=== PATIENT | female | born 1965 | race Caucasian/White ===

== ENCOUNTER 2017-09-24 12:24 | Emergency (ER) | payer OTHER ==
[~2017-09-24] VITALS: Ht 154.9 cm; Wt 136.1 kg
[2017-09-24 12:29] VITALS: Ht 154.9 cm; Wt 136.1 kg
[2017-09-24 16:01] VITALS: BP 180/112
== END 2017-09-24 16:01 | disposition home or self-care (01) ==
LOC: ED 12:24
DX: R51 Headache (principal); I10 Essential (primary) hypertension; E11.9 Type 2 diabetes mellitus without complications
CPT/HCPCS: 82962; J1200; J2765

== ENCOUNTER 2018-02-24 19:19 | Inpatient (IN) | payer OTHER ==
[~2018-02-24] VITALS: Ht 154.9 cm; Wt 146.5 kg
[2018-02-24] MEDS ORDERED: METFORMIN HYDR500 M1 PO (20:35)
[2018-02-24] MEDS ORDERED: ALBUTEROL1.25 MG/3 (20:36)
[2018-02-24] MEDS ORDERED: MOT400 GT (20:36)
[2018-02-24] MEDS ORDERED: AMLODIPINE BES2.5 M1 (20:37)
[2018-02-24 21:22] LABS: PLATELET COUNT 266 x10^3mcL (130-400)
[2018-02-24 21:38] LABS: RED CELL DISTRIBUTION WIDTH 20.5 % (11.5-14.5)
[2018-02-24 21:41] LABS: CALCIUM 8.1 mg/dL (8.5-10.1); CARBON DIOXIDE 31.8 mmol/L (21-32); CHLORIDE SERUM 105 mmol/L (98-107); GFR1 > 60 mL/min; GLUCOSE SERUM 153 mg/dL (74-106); POTASSIUM SERUM 3.8 mmol/L (3.5-5.1); SODIUM SERUM 143 mmol/L (136-145)
[2018-02-24 21:46] LABS: ALKALINE PHOSPHATASE 107 U/L (46-116); ALT/SGPT 15 U/L (14-59); AST/SGOT 22 U/L (15-37); BILIRUBIN TOTAL 0.8 mg/dL (0.20-1.00); LIPASE 93 IU/L (73-393); MAGNESIUM 1.8 mg/dL (1.8-2.4)
[2018-02-24 21:48] LABS: BAND NEUTROPHIL 0 % (0-10); BASOPHIL 0 % (0-2); MONOCYTE 12 % (0-7); SEGMENTED NEUTROPHILS 59 % (37-75)
[2018-02-24 21:49] LABS: ALBUMIN 2.6 g/dL (3.4-5.0); rbc morphology (normal/abnorm) ABNORMAL (NORMAL)
[2018-02-24 23:10] LABS: microscopic required? NO
[2018-02-24 23:27] LABS: UA SPECIFIC GRAVITY 1.015 (1.005-1.035); urine erythrocyte NEGATIVE (NEGATIVE)
[2018-02-24 23:39] VITALS: BP 163/97
[2018-02-24 23:56] LABS: AMPHETAMINE QUAL UR NONE DETECTED (See below)
[2018-02-25 00:35] LABS: T3 TOTAL 0.95 ng/mL
[2018-02-25 00:39] LABS: PHOSPHOROUS 3.8 mg/dL (2.5-4.9)
[2018-02-25 00:40] LABS: CHOLESTEROL/HDL RATIO 4.1
[2018-02-25 00:44] LABS: FREE T4 1.13 ng/dL (0.76-1.46); FREE THYROXINE INDEX 2.5 ug/dL (1.4-4.5); T4(THYROXINE) 7.2 ug/dL (4.7-13.3)
[2018-02-25 05:53] VITALS: BP 128/69
[2018-02-25 07:04] LABS: CARBON DIOXIDE 32.9 mmol/L (21-32); CHLORIDE SERUM 104 mmol/L (98-107); CREATININE SERUM 0.9 mg/dL (0.6-1.0); GFR1 > 60 mL/min; GLUCOSE SERUM 111 mg/dL (74-106); MAGNESIUM 1.7 mg/dL (1.8-2.4); PHOSPHOROUS 4.1 mg/dL (2.5-4.9); POTASSIUM SERUM 4.1 mmol/L (3.5-5.1); SODIUM SERUM 143 mmol/L (136-145)
[2018-02-25 08:28] LABS: BASOPHIL % 0.9 % (0-2); PLATELET COUNT 279 x10^3mcL (130-400)
[2018-02-25 08:29] VITALS: BP 138/92
[2018-02-25 08:29] LABS: RED CELL DISTRIBUTION WIDTH 20.3 % (11.5-14.5)
[2018-02-25 08:30] LABS: rbc morphology (normal/abnorm) ABNORMAL (NORMAL)
[2018-02-25 12:55] VITALS: BP 127/93
[2018-02-25 16:40] VITALS: BP 105/61
[2018-02-25 21:43] VITALS: BP 151/80
[2018-02-26 05:42] VITALS: BP 159/55
[2018-02-26 06:39] LABS: CALCIUM 8.4 mg/dL (8.5-10.1); CARBON DIOXIDE 37.7 mmol/L (21-32); CHLORIDE SERUM 103 mmol/L (98-107); CREATININE SERUM 0.9 mg/dL (0.6-1.0); GFR1 > 60 mL/min; GLUCOSE SERUM 118 mg/dL (74-106); SODIUM SERUM 143 mmol/L (136-145)
[2018-02-26 08:04] LABS: BASOPHIL % 0.6 % (0-2); PLATELET COUNT 261 x10^3mcL (130-400)
[2018-02-26 08:12] LABS: RED CELL DISTRIBUTION WIDTH 20.9 % (11.5-14.5)
[2018-02-26 09:16] VITALS: BP 134/78
[2018-02-26 12:09] VITALS: BP 109/63
[2018-02-26 17:32] VITALS: BP 123/69
[2018-02-26 20:30] VITALS: BP 152/86
[2018-02-27 05:51] VITALS: BP 124/82
[2018-02-27 06:50] LABS: BASOPHIL % 0.7 % (0-2); PLATELET COUNT 280 x10^3mcL (130-400)
[2018-02-27 07:10] LABS: CALCIUM 8.4 mg/dL (8.5-10.1); CHLORIDE SERUM 100 mmol/L (98-107); CREATININE SERUM 0.9 mg/dL (0.6-1.0); GFR1 > 60 mL/min; GLUCOSE SERUM 131 mg/dL (74-106); MAGNESIUM 1.6 mg/dL (1.8-2.4); PHOSPHOROUS 4.4 mg/dL (2.5-4.9); POTASSIUM SERUM 3.9 mmol/L (3.5-5.1); SODIUM SERUM 138 mmol/L (136-145)
[2018-02-27 07:13] LABS: RED CELL DISTRIBUTION WIDTH 20.7 % (11.5-14.5)
[2018-02-27 09:09] VITALS: BP 119/71
[2018-02-27] MEDS ORDERED: ZES10 PO (09:58)
[2018-02-27] MEDS ORDERED: LEVOFLOXACIN750 M1 PO (09:59)
[2018-02-27] MEDS ORDERED: CLEOCIN HCL300 MG PO (09:59)
[2018-02-27] MEDS ORDERED: BD LACTINEX1.4 MG PO (10:00)
[2018-02-27 13:47] VITALS: BP 119/71
[2018-02-27 14:21] VITALS: BP 137/65
[2018-02-27 16:38] VITALS: BP 150/92
[2018-02-27 20:00] VITALS: BP 108/60
[2018-02-28] VITALS (8 sets, daily range): BP systolic 95–143; BP diastolic 52–87
[2018-02-28 05:47] LABS: BASOPHIL % 0.2 % (0-2); PLATELET COUNT 250 x10^3mcL (130-400); RED CELL DISTRIBUTION WIDTH 20.5 % (11.5-14.5)
[2018-02-28 06:00] LABS: CALCIUM 8.2 mg/dL (8.5-10.1); CARBON DIOXIDE 36.5 mmol/L (21-32); CHLORIDE SERUM 99 mmol/L (98-107); CREATININE SERUM 0.7 mg/dL (0.6-1.0); GFR1 > 60 mL/min; GLUCOSE SERUM 103 mg/dL (74-106); MAGNESIUM 1.5 mg/dL (1.8-2.4); PHOSPHOROUS 3.8 mg/dL (2.5-4.9); POTASSIUM SERUM 4.1 mmol/L (3.5-5.1); SODIUM SERUM 137 mmol/L (136-145)
[2018-03-01 05:35] VITALS: BP 138/92
[2018-03-01 06:53] LABS: BASOPHIL % 0.7 % (0-2); PLATELET COUNT 246 x10^3mcL (130-400)
[2018-03-01 07:00] LABS: CALCIUM 8.3 mg/dL (8.5-10.1); CARBON DIOXIDE 35.6 mmol/L (21-32); CHLORIDE SERUM 97 mmol/L (98-107); CREATININE SERUM 0.6 mg/dL (0.6-1.0); GFR1 > 60 mL/min; GLUCOSE SERUM 73 mg/dL (74-106); MAGNESIUM 1.8 mg/dL (1.8-2.4); POTASSIUM SERUM 4.1 mmol/L (3.5-5.1); SODIUM SERUM 136 mmol/L (136-145)
[2018-03-01 07:38] LABS: RED CELL DISTRIBUTION WIDTH 19.9 % (11.5-14.5)
[2018-03-01 09:09] VITALS: BP 139/81
[2018-03-01 13:29] VITALS: BP 128/71
[2018-03-01 16:12] VITALS: BP 115/70
[2018-03-01 21:55] VITALS: BP 137/86
[2018-03-02 05:51] VITALS: BP 144/84
[2018-03-02 07:18] LABS: CALCIUM 8.5 mg/dL (8.5-10.1); CARBON DIOXIDE 35.5 mmol/L (21-32); CHLORIDE SERUM 98 mmol/L (98-107); CREATININE SERUM 0.6 mg/dL (0.6-1.0); GFR1 > 60 mL/min; GLUCOSE SERUM 104 mg/dL (74-106); MAGNESIUM 1.7 mg/dL (1.8-2.4); POTASSIUM SERUM 4.2 mmol/L (3.5-5.1); SODIUM SERUM 138 mmol/L (136-145)
[2018-03-02 07:43] LABS: BASOPHIL % 0.3 % (0-2); PLATELET COUNT 242 x10^3mcL (130-400)
[2018-03-02 07:49] LABS: RED CELL DISTRIBUTION WIDTH 20.5 % (11.5-14.5); rbc morphology (normal/abnorm) ABNORMAL (NORMAL)
[2018-03-02 10:41] VITALS: BP 157/88
[2018-03-02 16:54] VITALS: BP 142/81
[2018-03-02 21:39] VITALS: BP 141/87
[2018-03-03 05:52] VITALS: BP 142/83
[2018-03-03 07:19] LABS: CALCIUM 8.9 mg/dL (8.5-10.1); CHLORIDE SERUM 101 mmol/L (98-107); CREATININE SERUM 0.7 mg/dL (0.6-1.0); GFR1 > 60 mL/min; GLUCOSE SERUM 102 mg/dL (74-106); MAGNESIUM 1.7 mg/dL (1.8-2.4); PHOSPHOROUS 3.3 mg/dL (2.5-4.9); SODIUM SERUM 140 mmol/L (136-145)
[2018-03-03 07:28] LABS: BASOPHIL % 0.1 % (0-2); PLATELET COUNT 227 x10^3mcL (130-400); RED CELL DISTRIBUTION WIDTH 20.3 % (11.5-14.5)
[2018-03-03 08:29] VITALS: BP 177/98
[2018-03-03 13:16] VITALS: BP 150/73
[2018-03-03 18:53] VITALS: BP 159/91
[2018-03-03 20:48] VITALS: BP 140/84
[2018-03-04 05:33] VITALS: BP 149/104
[2018-03-04 07:14] LABS: BASOPHIL % 0.5 % (0-2); PLATELET COUNT 234 x10^3mcL (130-400); RED CELL DISTRIBUTION WIDTH 20.8 % (11.5-14.5)
[2018-03-04 07:15] LABS: rbc morphology (normal/abnorm) ABNORMAL (NORMAL)
[2018-03-04 08:18] LABS: CALCIUM 8.9 mg/dL (8.5-10.1); CARBON DIOXIDE 36.8 mmol/L (21-32); CHLORIDE SERUM 100 mmol/L (98-107); CREATININE SERUM 0.7 mg/dL (0.6-1.0); GFR1 > 60 mL/min; GLUCOSE SERUM 93 mg/dL (74-106); MAGNESIUM 1.9 mg/dL (1.8-2.4); SODIUM SERUM 138 mmol/L (136-145)
[2018-03-04 09:53] VITALS: BP 145/80
[2018-03-04 14:00] VITALS: BP 112/76
[2018-03-04 17:57] VITALS: BP 144/91
[2018-03-04 21:21] VITALS: BP 143/81
[2018-03-05 04:45] VITALS: BP 140/77
[2018-03-05 06:21] LABS: BASOPHIL % 0.5 % (0-2); PLATELET COUNT 242 x10^3mcL (130-400)
[2018-03-05 06:32] LABS: RED CELL DISTRIBUTION WIDTH 20.5 % (11.5-14.5)
[2018-03-05 06:47] LABS: CALCIUM 8.7 mg/dL (8.5-10.1); CARBON DIOXIDE 35.4 mmol/L (21-32); CHLORIDE SERUM 101 mmol/L (98-107); CREATININE SERUM 0.6 mg/dL (0.6-1.0); GFR1 > 60 mL/min; GLUCOSE SERUM 88 mg/dL (74-106); MAGNESIUM 1.8 mg/dL (1.8-2.4); PHOSPHOROUS 4.2 mg/dL (2.5-4.9); POTASSIUM SERUM 3.8 mmol/L (3.5-5.1); SODIUM SERUM 137 mmol/L (136-145)
[2018-03-05 07:17] LABS: target cell (codocyte) 1+
[2018-03-05 07:18] LABS: rbc morphology (normal/abnorm) ABNORMAL (NORMAL)
[2018-03-05 08:43] VITALS: BP 146/83
[2018-03-05 13:08] VITALS: BP 145/99
[2018-03-05 17:38] VITALS: BP 117/81
[2018-03-05 20:51] VITALS: BP 149/88
[2018-03-06 06:16] VITALS: BP 145/90
[2018-03-06 06:50] LABS: BASOPHIL % 0.5 % (0-2); PLATELET COUNT 223 x10^3mcL (130-400)
[2018-03-06 07:11] LABS: CALCIUM 9.2 mg/dL (8.5-10.1); CARBON DIOXIDE 35.4 mmol/L (21-32); CHLORIDE SERUM 103 mmol/L (98-107); CREATININE SERUM 0.6 mg/dL (0.6-1.0); GFR1 > 60 mL/min; GLUCOSE SERUM 97 mg/dL (74-106); POTASSIUM SERUM 3.9 mmol/L (3.5-5.1); SODIUM SERUM 139 mmol/L (136-145)
[2018-03-06 07:16] LABS: RED CELL DISTRIBUTION WIDTH 20.6 % (11.5-14.5)
[2018-03-06 09:05] VITALS: BP 149/77
[2018-03-06 12:42] VITALS: BP 161/97
[2018-03-06 17:02] VITALS: BP 154/86
[2018-03-06 21:44] VITALS: BP 142/79
[2018-03-07 03:56] VITALS: BP 140/85
[2018-03-07 08:54] VITALS: BP 128/78
[2018-03-07 13:36] VITALS: BP 128/69
[2018-03-07 16:26] VITALS: BP 156/90
[2018-03-07 21:36] VITALS: BP 140/76
[2018-03-08 05:47] VITALS: BP 142/78
[2018-03-08 07:18] LABS: CALCIUM 9.3 mg/dL (8.5-10.1); CARBON DIOXIDE 34.8 mmol/L (21-32); CHLORIDE SERUM 101 mmol/L (98-107); GLUCOSE SERUM 92 mg/dL (74-106); MAGNESIUM 1.7 mg/dL (1.8-2.4); PHOSPHOROUS 4.8 mg/dL (2.5-4.9); POTASSIUM SERUM 4.1 mmol/L (3.5-5.1); SODIUM SERUM 139 mmol/L (136-145)
[2018-03-08 07:21] LABS: CREATININE SERUM 0.7 mg/dL (0.6-1.0); GFR1 > 60 mL/min
[2018-03-08 07:47] LABS: PLATELET COUNT 244 x10^3mcL (130-400)
[2018-03-08 07:55] LABS: RED CELL DISTRIBUTION WIDTH 21.5 % (11.5-14.5)
[2018-03-08 08:37] VITALS: BP 166/103
[2018-03-08 08:44] LABS: BAND NEUTROPHIL 1 % (0-10); BASOPHIL 0 % (0-2); MONOCYTE 5 % (0-7); SEGMENTED NEUTROPHILS 70 % (37-75)
[2018-03-08 10:35] VITALS: BP 146/78
[2018-03-08 12:09] LABS: PLATELET MORPHOLOGY N; rbc morphology (normal/abnorm) ABNORMAL (NORMAL)
[2018-03-08 12:34] VITALS: BP 164/87
[2018-03-08 17:01] VITALS: Ht 154.9 cm; Wt 146.5 kg
[2018-03-08 18:01] VITALS: BP 164/92
[2018-03-08 21:07] VITALS: BP 145/81
[2018-03-09 05:15] VITALS: BP 145/86
[2018-03-09 06:05] LABS: BASOPHIL % 0.7 % (0-2); PLATELET COUNT 237 x10^3mcL (130-400)
[2018-03-09 06:22] LABS: CALCIUM 8.9 mg/dL (8.5-10.1); CHLORIDE SERUM 100 mmol/L (98-107); CREATININE SERUM 0.7 mg/dL (0.6-1.0); GFR1 > 60 mL/min; GLUCOSE SERUM 99 mg/dL (74-106); MAGNESIUM 1.7 mg/dL (1.8-2.4); PHOSPHOROUS 4.6 mg/dL (2.5-4.9); SODIUM SERUM 139 mmol/L (136-145)
[2018-03-09 07:03] LABS: RED CELL DISTRIBUTION WIDTH 21.8 % (11.5-14.5); rbc morphology (normal/abnorm) ABNORMAL (NORMAL)
[2018-03-09 10:03] VITALS: BP 126/74
[2018-03-09 11:59] VITALS: BP 126/74
[2018-03-09] MEDS ORDERED: GLU500 PO (13:20)
[2018-03-09] MEDS ORDERED: PROAIR HFA8.5 GM IH (13:20)
[2018-03-09] MEDS ORDERED: MEDDP PO (13:20)
[2018-03-09] MEDS ORDERED: LASIX20 MG PO (13:20)
[2018-03-09] MEDS ORDERED: NOR5 PO (13:20)
[2018-03-09 14:07] VITALS: BP 118/63
[2018-03-09 15:41] VITALS: BP 118/63
== END 2018-03-09 18:27 | disposition home health service (06) | DRG 383 ==
LOC: ED 19:19 → DU 22:46 → IC 02-27 17:38 → DU 02-27 17:56 → IC 02-27 17:59 → DU 02-28 16:17
PROVIDERS: Emergency Medicine; Family Medicine; Family Medicine Sports Medicine
PROC: 5A09357 Assistance with Respiratory Ventilation, Less than 24 Consecutive Hours, Continuous Positive Airway Pressure (ICD-10-PCS; principal; 2018-02-24)
DX: L03.115 Cellulitis of right lower limb (principal); J96.21 Acute and chronic respiratory failure with hypoxia; E43 Unspecified severe protein-calorie malnutrition; I42.0 Dilated cardiomyopathy; Z68.44 Body mass index [BMI] 60.0-69.9, adult; I50.810 Right heart failure, unspecified; I11.0 Hypertensive heart disease with heart failure; I43 Cardiomyopathy in diseases classified elsewhere; L03.311 Cellulitis of abdominal wall; E11.51 Type 2 diabetes mellitus with diabetic peripheral angiopathy without gangrene; E11.65 Type 2 diabetes mellitus with hyperglycemia; J96.22 Acute and chronic respiratory failure with hypercapnia; J44.1 Chronic obstructive pulmonary disease with (acute) exacerbation; I27.20 Pulmonary hypertension, unspecified; E66.2 Morbid (severe) obesity with alveolar hypoventilation; E02 Subclinical iodine-deficiency hypothyroidism; E83.42 Hypomagnesemia; I16.0 Hypertensive urgency; Z53.29 Procedure and treatment not carried out because of patient's decision for other reasons; D64.9 Anemia, unspecified; L03.116 Cellulitis of left lower limb; F25.0 Schizoaffective disorder, bipolar type; M19.90 Unspecified osteoarthritis, unspecified site; Z87.891 Personal history of nicotine dependence; Z79.84 Long term (current) use of oral hypoglycemic drugs; Z99.81 Dependence on supplemental oxygen
CPT/HCPCS: 36600; 82962; 83880; 84439; 97110-GP; 97116-GP; 97164; 97530-GP; 97535-GP; J1644; J1885; J1940; J1956; J3475; J3490; J7030; J7050; J7620; Q0092

== ENCOUNTER 2018-06-24 15:38 | Inpatient (IN) | payer OTHER ==
[~2018-06-24] VITALS: Ht 154.9 cm; Wt 171.5 kg
[~2018-06-24 15:38] MED LIST: ALBUTEROL1.25 MG/3; AMLODIPINE BES2.5 M1; BD LACTINEX1.4 MG PO; CLEOCIN HCL300 MG PO; GLU500 PO; LASIX20 MG PO; LEVOFLOXACIN750 M1 PO; MEDDP PO; METFORMIN HYDR500 M1 PO; MOT400 GT; NOR5 PO; PROAIR HFA8.5 GM IH; ZES10 PO
[2018-06-24 15:47] VITALS: Ht 154.9 cm; Wt 171.5 kg
[2018-06-24 17:31] LABS: BASOPHIL % 0.2 % (0-2); PLATELET COUNT 303 x10^3mcL (130-400)
[2018-06-24 17:32] LABS: RED CELL DISTRIBUTION WIDTH 21.4 % (11.5-14.5)
[2018-06-24 17:49] LABS: CALCIUM 8.8 mg/dL (8.5-10.1); CARBON DIOXIDE 32.8 mmol/L (21-32); CREATININE SERUM 1.1 mg/dL (0.6-1.0); POTASSIUM SERUM 4.4 mmol/L (3.5-5.1)
[2018-06-24 17:54] LABS: BILIRUBIN TOTAL 1.5 mg/dL (0.20-1.00)
[2018-06-24 17:59] LABS: ALBUMIN 2.8 g/dL (3.4-5.0); TOTAL PROTEIN, SERUM 9.2 g/dL (6.4-8.2)
[2018-06-24 18:10] LABS: ovalocyte/elliptocyte 1+; rbc morphology (normal/abnorm) ABNORMAL (NORMAL); tear drop cell (dacryocyte) 1+
[2018-06-24 18:26] LABS: T3 TOTAL 0.72 ng/mL
[2018-06-24 18:36] LABS: MAGNESIUM 1.9 mg/dL (1.8-2.4); PHOSPHOROUS 4.4 mg/dL (2.5-4.9)
[2018-06-24 18:57] LABS: FREE T4 1.05 ng/dL (0.76-1.46); FREE THYROXINE INDEX 1.7 ug/dL (1.4-4.5)
[2018-06-24 19:00] LABS: CHOLESTEROL/HDL RATIO 3.8
[2018-06-24 20:10] VITALS: BP 154/81
[2018-06-25 03:04] LABS: AMPHETAMINE QUAL UR NONE DETECTED (See below)
[2018-06-25 03:08] LABS: UA SPECIFIC GRAVITY 1.025 (1.005-1.035); microscopic required? YES; urine erythrocyte 2+ (NEGATIVE)
[2018-06-25 05:31] VITALS: BP 108/55
[2018-06-25 07:36] LABS: CALCIUM 8.7 mg/dL (8.5-10.1); CARBON DIOXIDE 29.4 mmol/L (21-32); CREATININE SERUM 1.1 mg/dL (0.6-1.0); POTASSIUM SERUM 4.6 mmol/L (3.5-5.1)
[2018-06-25 08:10] LABS: BASOPHIL % 0.1 % (0-2); PLATELET COUNT 307 x10^3mcL (130-400)
[2018-06-25 08:12] LABS: RED CELL DISTRIBUTION WIDTH 21.5 % (11.5-14.5)
[2018-06-25 08:14] LABS: ovalocyte/elliptocyte 1+; rbc morphology (normal/abnorm) ABNORMAL (NORMAL); tear drop cell (dacryocyte) 1+
[2018-06-25 10:00] VITALS: BP 103/56
[2018-06-25 12:45] VITALS: BP 116/70
[2018-06-25 17:06] VITALS: BP 104/59
[2018-06-25 21:28] VITALS: BP 110/57
[2018-06-26 06:41] VITALS: BP 106/54
[2018-06-26 06:50] LABS: CALCIUM 8.7 mg/dL (8.5-10.1); CARBON DIOXIDE 29.4 mmol/L (21-32); CREATININE SERUM 1.8 mg/dL (0.6-1.0); POTASSIUM SERUM 4.9 mmol/L (3.5-5.1)
[2018-06-26 06:56] LABS: BASOPHIL % 0.5 % (0-2); PLATELET COUNT 281 x10^3mcL (130-400)
[2018-06-26 07:03] LABS: RED CELL DISTRIBUTION WIDTH 20.9 % (11.5-14.5)
[2018-06-26 07:04] LABS: ovalocyte/elliptocyte 1+; tear drop cell (dacryocyte) 1+
[2018-06-26 07:41] LABS: rbc morphology (normal/abnorm) ABNORMAL (NORMAL)
[2018-06-26 07:47] LABS: PHOSPHOROUS 5.7 mg/dL (2.5-4.9)
[2018-06-26 09:18] VITALS: BP 102/55
[2018-06-26 13:22] VITALS: BP 137/59
[2018-06-26 16:42] VITALS: BP 120/68
[2018-06-26 20:37] VITALS: BP 121/65
[2018-06-27 06:39] VITALS: BP 108/59
[2018-06-27 08:40] VITALS: BP 132/61
[2018-06-27 09:35] LABS: BASOPHIL % 0.7 % (0-2); PLATELET COUNT 272 x10^3mcL (130-400)
[2018-06-27 09:36] LABS: CALCIUM 8.3 mg/dL (8.5-10.1); CARBON DIOXIDE 28.9 mmol/L (21-32); CREATININE SERUM 2.2 mg/dL (0.6-1.0); MAGNESIUM 2.1 mg/dL (1.8-2.4); PHOSPHOROUS 5.6 mg/dL (2.5-4.9); POTASSIUM SERUM 5.1 mmol/L (3.5-5.1)
[2018-06-27 09:45] LABS: RED CELL DISTRIBUTION WIDTH 21.2 % (11.5-14.5)
[2018-06-27 13:30] VITALS: BP 101/49
[2018-06-27 17:04] VITALS: BP 101/57
[2018-06-27 21:18] VITALS: BP 97/54
[2018-06-28 05:39] VITALS: BP 91/48
[2018-06-28 05:47] LABS: BASOPHIL % 0.3 % (0-2); PLATELET COUNT 278 x10^3mcL (130-400)
[2018-06-28 06:13] LABS: CARBON DIOXIDE 29.2 mmol/L (21-32); CREATININE SERUM 2.3 mg/dL (0.6-1.0); MAGNESIUM 2.1 mg/dL (1.8-2.4); PHOSPHOROUS 5.4 mg/dL (2.5-4.9); POTASSIUM SERUM 5.4 mmol/L (3.5-5.1)
[2018-06-28 07:18] LABS: rbc morphology (normal/abnorm) ABNORMAL (NORMAL)
[2018-06-28 08:18] VITALS: BP 144/72
[2018-06-28 13:10] VITALS: BP 94/48
[2018-06-28 17:47] VITALS: BP 127/70
[2018-06-28 20:46] VITALS: BP 142/54
[2018-06-29 05:47] VITALS: BP 111/53
[2018-06-29 06:00] LABS: BASOPHIL % 0.5 % (0-2); PLATELET COUNT 254 x10^3mcL (130-400)
[2018-06-29 06:28] LABS: CARBON DIOXIDE 27.8 mmol/L (21-32); CREATININE SERUM 1.8 mg/dL (0.6-1.0); MAGNESIUM 2.2 mg/dL (1.8-2.4); PHOSPHOROUS 5.4 mg/dL (2.5-4.9); POTASSIUM SERUM 5.4 mmol/L (3.5-5.1)
[2018-06-29 06:50] LABS: RED CELL DISTRIBUTION WIDTH 20.4 % (11.5-14.5)
[2018-06-29 08:32] LABS: rbc morphology (normal/abnorm) ABNORMAL (NORMAL)
[2018-06-29 09:00] VITALS: BP 118/58
[2018-06-29 13:10] VITALS: BP 152/64
[2018-06-29 17:39] VITALS: BP 127/63
[2018-06-29 20:48] VITALS: BP 122/66
[2018-06-30 05:14] VITALS: BP 115/60
[2018-06-30 07:07] LABS: CALCIUM 8.3 mg/dL (8.5-10.1); CARBON DIOXIDE 28.1 mmol/L (21-32); CREATININE SERUM 1.4 mg/dL (0.6-1.0); PHOSPHOROUS 4.5 mg/dL (2.5-4.9); POTASSIUM SERUM 5.5 mmol/L (3.5-5.1)
[2018-06-30 07:55] LABS: BASOPHIL % 0.4 % (0-2); PLATELET COUNT 265 x10^3mcL (130-400)
[2018-06-30 07:57] LABS: RED CELL DISTRIBUTION WIDTH 21.1 % (11.5-14.5)
[2018-06-30 09:23] VITALS: BP 103/61
[2018-06-30 10:51] LABS: rbc morphology (normal/abnorm) ABNORMAL (NORMAL)
[2018-06-30 12:54] VITALS: BP 128/70
[2018-06-30 17:52] VITALS: BP 118/69
[2018-06-30 20:49] VITALS: BP 103/49
[2018-07-01 05:22] VITALS: BP 104/57
[2018-07-01 06:31] LABS: CALCIUM 8.3 mg/dL (8.5-10.1); CARBON DIOXIDE 29.1 mmol/L (21-32); CREATININE SERUM 1.1 mg/dL (0.6-1.0); MAGNESIUM 1.8 mg/dL (1.8-2.4); PHOSPHOROUS 3.8 mg/dL (2.5-4.9); POTASSIUM SERUM 5.4 mmol/L (3.5-5.1)
[2018-07-01 07:28] LABS: BASOPHIL % 0.6 % (0-2); PLATELET COUNT 250 x10^3mcL (130-400)
[2018-07-01 07:30] LABS: RED CELL DISTRIBUTION WIDTH 19.9 % (11.5-14.5)
[2018-07-01 08:24] VITALS: BP 143/82
[2018-07-01 13:26] VITALS: BP 138/79
[2018-07-01 16:42] VITALS: BP 130/74
[2018-07-01 20:46] VITALS: BP 146/80
[2018-07-02 05:34] VITALS: BP 142/77
[2018-07-02 06:44] LABS: CALCIUM 8.6 mg/dL (8.5-10.1); CARBON DIOXIDE 30.5 mmol/L (21-32); CHLORIDE SERUM 103 mmol/L (98-107); GFR1 > 60 mL/min; GLUCOSE SERUM 85 mg/dL (74-106); MAGNESIUM 1.9 mg/dL (1.8-2.4); PHOSPHOROUS 3.6 mg/dL (2.5-4.9); SODIUM SERUM 136 mmol/L (136-145)
[2018-07-02 06:49] LABS: BASOPHIL % 0.8 % (0-2); PLATELET COUNT 243 x10^3mcL (130-400)
[2018-07-02 06:57] LABS: POTASSIUM SERUM 5.7 mmol/L (3.5-5.1)
[2018-07-02 07:25] LABS: RED CELL DISTRIBUTION WIDTH 20.3 % (11.5-14.5)
[2018-07-02 07:54] VITALS: BP 132/73
[2018-07-02 13:03] VITALS: BP 135/78
[2018-07-02 16:02] VITALS: BP 129/80
[2018-07-02 20:45] VITALS: BP 142/92
[2018-07-03 05:24] VITALS: BP 141/75
[2018-07-03 06:15] LABS: PLATELET COUNT 251 x10^3mcL (130-400)
[2018-07-03 06:28] LABS: CALCIUM 8.4 mg/dL (8.5-10.1); CARBON DIOXIDE 32.2 mmol/L (21-32); CHLORIDE SERUM 103 mmol/L (98-107); CREATININE SERUM 0.9 mg/dL (0.6-1.0); GFR1 > 60 mL/min; GLUCOSE SERUM 91 mg/dL (74-106); MAGNESIUM 1.7 mg/dL (1.8-2.4); PHOSPHOROUS 3.7 mg/dL (2.5-4.9); SODIUM SERUM 138 mmol/L (136-145)
[2018-07-03 07:01] LABS: POTASSIUM SERUM 5.8 mmol/L (3.5-5.1)
[2018-07-03 07:14] LABS: RED CELL DISTRIBUTION WIDTH 20.2 % (11.5-14.5)
[2018-07-03 07:57] LABS: BAND NEUTROPHIL 0 % (0-10); BASOPHIL 1 % (0-2); MONOCYTE 19 % (0-7)
[2018-07-03 08:03] LABS: SEGMENTED NEUTROPHILS 63 % (37-75)
[2018-07-03 09:11] VITALS: BP 130/87
[2018-07-03] MEDS ORDERED: IPRATROPIUM BROM3 M2 HHN ×2 (11:52)
[2018-07-03] MEDS ORDERED: TYL325 PO (11:53)
[2018-07-03] MEDS ORDERED: L40I IV (11:53)
[2018-07-03] MEDS ORDERED: NOR5 PO (11:53)
[2018-07-03] MEDS ORDERED: HEP5I SC (11:53)
[2018-07-03] MEDS ORDERED: COL100 PO (11:54)
[2018-07-03] MEDS ORDERED: BENC TOP (11:54)
[2018-07-03] MEDS ORDERED: SEN PO (11:54)
[2018-07-03] MEDS ORDERED: ZOFI IV (11:54)
[2018-07-03 12:15] VITALS: BP 130/87
[2018-07-03 13:38] VITALS: BP 145/61
[2018-07-03 14:54] LABS: rbc morphology (normal/abnorm) NORMAL (NORMAL)
== END 2018-07-03 19:59 | DRG 133 ==
LOC: ED 15:38 → DU 17:10 → ED 17:40 → MU 17:40 → DU 19:44
PROVIDERS: Emergency Medicine; General Practice; Internal Medicine
PROC: 5A09457 Assistance with Respiratory Ventilation, 24-96 Consecutive Hours, Continuous Positive Airway Pressure (ICD-10-PCS; 2018-06-24)
PROC: 5A09357 Assistance with Respiratory Ventilation, Less than 24 Consecutive Hours, Continuous Positive Airway Pressure (ICD-10-PCS; principal; 2018-07-01)
DX: J96.21 Acute and chronic respiratory failure with hypoxia (principal); N17.0 Acute kidney failure with tubular necrosis; E11.21 Type 2 diabetes mellitus with diabetic nephropathy; E44.0 Moderate protein-calorie malnutrition; E11.65 Type 2 diabetes mellitus with hyperglycemia; D64.9 Anemia, unspecified; E66.2 Morbid (severe) obesity with alveolar hypoventilation; R26.81 Unsteadiness on feet; E02 Subclinical iodine-deficiency hypothyroidism; F20.9 Schizophrenia, unspecified; M19.90 Unspecified osteoarthritis, unspecified site; E83.39 Other disorders of phosphorus metabolism; E87.5 Hyperkalemia; J96.22 Acute and chronic respiratory failure with hypercapnia; N18.9 Chronic kidney disease, unspecified; E11.22 Type 2 diabetes mellitus with diabetic chronic kidney disease; E87.2 Acidosis; K59.00 Constipation, unspecified; W01.0XXA Fall on same level from slipping, tripping and stumbling without subsequent striking against object, initial encounter; Y93.89 Activity, other specified; Z68.43 Body mass index [BMI] 50.0-59.9, adult; Y92.031 Bathroom in apartment as the place of occurrence of the external cause; Z91.19 Patient's noncompliance with other medical treatment and regimen
CPT/HCPCS: 36600; 76770; 83880; 84439; 97110-GP; 97116-GP; 97530-GP; J0696; J1644; J1940; J7030; J7620; Q0092

== ENCOUNTER 2019-01-25 22:38 | Inpatient (IN) | payer OTHER ==
[~2019-01-25] VITALS: Ht 162.6 cm; Wt 115.7 kg
[~2019-01-25 22:38] MED LIST changes: +BENC TOP; +COL100 PO; +HEP5I SC; +IPRATROPIUM BROM3 M2 HHN; +L40I IV; +SEN PO; +TYL325 PO; +ZOFI IV
--- NOTE | 2019-01-25 23:14 | NUR ---
PT BIB [facility] FOR SOB X1 DAY. PER MEDIC, PT HAS HX OF COPD, RAN OUT OF 02, AND BEGAN TO GET SOB, CALLING EMS. PER MEDIC, PT RAN OUT OF MEDICATION FOR COPD AND HF X1 MONTH AGO. PT BROUGHT IN ON 10L HI FLOW CANNULA, SATURATIONG AT 91%. PT PRESENTS W/ INCREASED WOB, ACCESSORY MUSCLE USE NOTED. PT SLUMPED OVER TO LEFT SIDE OF BED. PT SPEAKING IN 1-2 WORD SENTENCES. PT PLACED ON 02, PULSE OX, AND DOCK GRADER. MD CALLED TO BEDSIDE. RT NOTIFIED TO BRING BIPAP.
--- NOTE | 2019-01-25 23:25 | NUR ---
RT AT BEDSIDE W/ BIPAP
--- NOTE | 2019-01-25 23:43 | NUR ---
MEDICATION ADMINISTERED PER MD ORDER
[2019-01-25 23:49] LABS: BASOPHIL % 0.4 % (0-2); PLATELET COUNT 187 x10^3mcL (130-400)
[2019-01-25 23:50] LABS: RED CELL DISTRIBUTION WIDTH 18.4 % (11.5-14.5)
--- NOTE | 2019-01-25 23:50 | NUR ---
PER DR LAWSON, PT WILL NEED TO BE INTUBATED
[2019-01-25 23:56] LABS: CALCIUM 8.9 mg/dL (8.5-10.1); CARBON DIOXIDE 34.9 mmol/L (21-32); CHLORIDE SERUM 101 mmol/L (98-107); CREATININE SERUM 0.8 mg/dL (0.6-1.0); GFR1 > 60 mL/min; GLUCOSE SERUM 161 mg/dL (74-106); SODIUM SERUM 139 mmol/L (136-145)
[2019-01-26] VITALS (17 sets, daily range): BP systolic 91–208; BP diastolic 55–116
--- NOTE | 2019-01-26 00:02 | NUR ---
PT MOVED TO T1, PREPPED FOR INTUBATION.
[2019-01-26 00:10] LABS: ALKALINE PHOSPHATASE 179 U/L (46-116); ALT/SGPT 23 U/L (14-59); AST/SGOT 37 U/L (15-37); BILIRUBIN TOTAL 0.96 mg/dL (0.20-1.00); FREE T4 1.01 ng/dL (0.76-1.46); LIPASE 72 IU/L (73-393)
[2019-01-26 00:11] LABS: ALBUMIN 3.2 g/dL (3.4-5.0); TOTAL PROTEIN, SERUM 9.4 g/dL (6.4-8.2)
--- NOTE | 2019-01-26 00:11 | NUR ---
65MG ROCURONUIM GIVEN IVP IN R AC
--- NOTE | 2019-01-26 00:11 | NUR ---
10MG ETOMIDATE GIVEN IVP THROUGH 20G IN R AC
--- NOTE | 2019-01-26 00:13 | NUR ---
FIO2 TURNED UP TO 100%
--- NOTE | 2019-01-26 00:16 | NUR ---
8 FR ET TUBE PLACED MEASURING 26CM AT THE LIP
--- NOTE | 2019-01-26 00:25 | NUR ---
OG TUBE PLACED, PLACEMENT TO BE VERIFIED BY X-RAY
--- NOTE | 2019-01-26 00:28 | NUR ---
PLACEMENT FOR ET TUBE AND OG TUBE VERIFIED BY X-RAY AND DR LAWSON
--- NOTE | 2019-01-26 00:40 | NUR ---
SOFT RESTRAINTS PLACED ON HANDS
--- NOTE | 2019-01-26 00:46 | NUR ---
MEDICATION ADMINISTERED PER MD ORDER
--- NOTE | 2019-01-26 00:59 | NUR ---
PROPOFOL STARTED AT 10MCG/KG/MIN
[2019-01-26 01:23] LABS: CHOLESTEROL/HDL RATIO 2.6; MAGNESIUM 1.9 mg/dL (1.8-2.4); PHOSPHOROUS 3.8 mg/dL (2.5-4.9)
[2019-01-26 02:15] LABS: UA SPECIFIC GRAVITY >=1.030 (1.005-1.035); microscopic required? YES; urine erythrocyte 2+ (NEGATIVE)
[2019-01-26 02:24] LABS: AMPHETAMINE QUAL UR NONE DETECTED (See below)
--- NOTE | 2019-01-26 02:30 | NUR ---
PT ON VENTILATOR, VSS. 100ML OUTPUT VIA NUNO NOTED. PROPOFOL RUNNING AT 15MCG/KG/MIN. OG TUBE HOOKED TO LOW INTERMITTENT SUCTION. 2 BED RAILS UP, BED IN LOW AND LOCKED POSITION. PT IN NO DISTRESS AT THIS TIME.
--- NOTE | 2019-01-26 03:14 | NUR ---
REPORT GIVEN TO ASTON LIMON
--- NOTE | 2019-01-26 03:40 | NUR ---
RECIEVED PT FROM ER ACCOMPANIED BY ASHLY CLEVELAND. PT INTUBATED AND SEDATED. ETT 8 @ 26LL. VENTED TO AC MODE. LUNG SOUNDS DIM BUL. PULSES WEAK BILATERALLY. TRACE EDEMA BILATERALLY. NSR. SKIN INTACT. OGT TO LIS. L FA IV AND R FA IV PATENT AND INTACT. F/C SECURE AND INTACT DRAINING FREELY TO GRAVITY. SOFT WRIST RESTRAINTS MONCHO.
--- NOTE | 2019-01-26 04:25 | NUR ---
NOTIFIED FROM PHARMACY OF ALLERGY TO PCN AND PREVIOUS ADMINISTRATION OF ZOSYN. MADE DR GROVER AWARE AND IF WANTED TO CONT ZOSYN. PT W/ NO S/S OF REACTION.
--- NOTE | 2019-01-26 04:34 | NUR ---
ASSOCIATE SCHOOL PSYCHOLOGIST @ BEDSIDE.
[2019-01-26 05:02] LABS: PLATELET COUNT 165 x10^3mcL (130-400)
[2019-01-26 05:04] LABS: BASOPHIL % 0 % (0-2); RED CELL DISTRIBUTION WIDTH 18.6 % (11.5-14.5)
[2019-01-26 05:05] LABS: CALCIUM 9.1 mg/dL (8.5-10.1); CARBON DIOXIDE 36.1 mmol/L (21-32); CHLORIDE SERUM 102 mmol/L (98-107); CREATININE SERUM 0.9 mg/dL (0.6-1.0); GFR1 > 60 mL/min; GLUCOSE SERUM 129 mg/dL (74-106); POTASSIUM SERUM 4.2 mmol/L (3.5-5.1); SODIUM SERUM 140 mmol/L (136-145)
--- NOTE | 2019-01-26 05:20 | NUR ---
RECIEVED ORDERS THAT OK TO CONTINUE ZOSYN ADMINISTRATION W/ NOTED PREVIOUS HISTORY OF ALLERGY TO PENICILLIN PER DR GROVER.
--- NOTE | 2019-01-26 06:12 | NUR ---
PT RESTING CALMLY IN BED. NO ACUTE CHANGES. WILL ENDORSE.
--- NOTE | 2019-01-26 06:19 | NUR ---
DR KING @ BEDSIDE. NURSING UPDATES. POC DISCUSSED. REQUESTED DIET ORDERS, SOLUMEDROL ORDER CHANGED TO IVP, REPEAT AMMONIA.
--- NOTE | 2019-01-26 07:13 | NUR ---
RECEIVED PT'S REPORT FROM LEAVING NURSE. PT IS INTUBATED ON VENT AC MODE WITH VT 450, RT 14, FIO2 60%, PEEP 5, O2 SAT ABOUT 91%. PT IS SEDATED WITH PROPOFOL AT 15MCG/KG/MIN, RSS 4, PT RESPONSES TO PAIN STIMULI WITH BODY WITHDRAW. OGT INPLACE SECURED WITH ETT. NUNO IN PLACE, DRAINING FREELY VIA GRAVITY. PT ON MONCHO SOFT WRISTS RESTRATINTS. SCD APPLIED TO BLE. WILL CONTINUE TO MONITOR.
--- NOTE | 2019-01-26 07:14 | NUR ---
REPORT GIVEN TO ASHLY PEÑA. ALL CONCERNS ADDRESS. CARE OF PT TRANSFERED.
--- NOTE | 2019-01-26 09:05 | NUR ---
STARTED PT'S TUBE FEEDING ON GLUCERNA AT INITIAL RATE 10ML/HR, WFW 100ML Q4H VIA OGT. NO RESIDULE AT THIS TIME. PT ON PROPOFOL 15MCG/KG/MIN, PT RESPONSES TO AUDITORY AND TACTILE STIMULI WITH OPENING EYES AND FOLLOWING SIMPLE COMMAND. PT IS TRYING TO PULL HER TUBE. REPOSITION PT AND REMAIN PT'S MONCHO SOFT WRISTS RESTRAINTS.
--- NOTE | 2019-01-26 09:52 | NUR ---
DR. GLOVER LEAD MORNING MEDICAL TEAM FOR MORNING ROUND. PT'S CONDITION IS UPDATED.
--- NOTE | 2019-01-26 10:00 | NUR ---
DR. GLOVER AND RESIDENTS AT ROUND. PROVIDED UPDATES RECOMEND TO ORDER HEPARIN SQ.
--- NOTE | 2019-01-26 10:53 | NUR ---
STAFF IS PERFORMING ECHO AT BEDSIDE.
--- NOTE | 2019-01-26 10:54 | NUR ---
WOUND CARE EVALUATION FOR LOW HAYDEN SCALE AT RISK PT. SKIN DRY, INTACT, BLE COLD TO TOUCH, FUNGAL LIKED TOE NAILS OBSERVED. PRESSURE ULCER INJURY PREVENTION INTERVENTIONS IN PLACE. -TURN AND REPOSITION PATIENT Q 2H OFFLOAD LEFT AND RIGHT HIPS -ASSESS AND MONITOR SKIN CONDITION DURING POSITION CHANGE -OFFLOAD BILATERAL HEELS BY PLACING PILLOWS UNDER CALVES AT ALL TIMES, UNLESS OTHERWISE CONTRAINDICATED -PRESSURE REDISTRIBUTION SURFACE THERAPY -KEEP SKIN CLEAN AND DRY AT ALL TIMES.
--- NOTE | 2019-01-26 11:30 | NUR ---
REPOSITION PT, OPTIFORM APPLIED TO SACRAL AREA FOR PREVENTION. ELEVATED PT'S MONCHO EXTRIMITIES WITH PILLOWS. PT TOLERATES WELL ON CURRENT FEEDING, ADVANCED FROM 10ML/HR TO 20ML/HR. PT FOLLOW COMMANDS AT THIS TIME. WILL CONTINUE TO MONITOR.
--- NOTE | 2019-01-26 14:55 | NUR ---
DR. ORELLANA SAW PT, AND REDUCED VENT FIO2 FROM 60% TO 50%. PT'S O2 SAT 94% AT THIS TIME.
--- NOTE | 2019-01-26 17:58 | NUR ---
CALLED AND MADE DR. CARPENTER AWARE PT'S URINE OUTPUT ONLY 150ML, CLAIRE THROUGH SHIFT.
--- NOTE | 2019-01-26 20:27 | NUR ---
RECIEVED REPORT FROM ASHLY PEÑA. RESUMED CARE OF PT. SEE SHIFT ASSESSMENT FOR PT ASSESSMENT. NOTIFIED DR GROVER OF CHF AND LOW URINE OUTPUT. SUGGESTED LASIX AND POSSIBLY D/C THE NS.
--- NOTE | 2019-01-26 20:30 | NUR ---
PT W/ TEMP 99.9. COOLING MEASURES IN PLACE.
--- NOTE | 2019-01-26 22:03 | NUR ---
PT NOTIFIED OF DRY EYES. NOTIFIED DR YORK FOR EYE DROPS. AWAITING ORDERS.
--- NOTE | 2019-01-26 22:24 | NUR ---
MARY @ BEDSIDE. NURSING UPDATES. POC DISCUSSED. MARY NOTED A LACK OF COMPLIANCE WITH HOME MEDS.
--- NOTE | 2019-01-26 22:36 | NUR ---
TITRATED PROPOFOL FROM 15MCG TO 20 MCG PER PT RSS 3. PT AWAKE AND ALERT. PT COMMUNICATING W/ WRITING CLEAR AND APPROPRIATE. WILL CONT TO MONITOR.
--- NOTE | 2019-01-26 23:53 | NUR ---
ATTEMPTED TO CALL DAUGHTER MEGGAN FOR UPDATES @ [phone]. NO ANSWER AND NO MACHINE TO RECORD ANSWER. WILL ENDORSE.
[2019-01-27] VITALS (15 sets, daily range): BP systolic 97–135; BP diastolic 63–77
--- NOTE | 2019-01-27 02:14 | NUR ---
PT RESTING COMFORTABLY IN BED. NO ACUTE CHANGES. NELLY CANCHOLA @ BEDSIDE. WILL CONT TO MONITOR.
--- NOTE | 2019-01-27 03:00 | NUR ---
TITRATED PROPOFOL FROM 20MCG TO 30MCG PER PT AGITATION AND BREATHING AGAINST THE VENTILATOR. PT AGITATION HIS HANDS AND ATTEMPTING TO REMOVE LINES. VS WNL PT TOLERATED WELL. RESTING CALMLY WILL CONT TO MONITOR.
--- NOTE | 2019-01-27 03:16 | NUR ---
TITRATED FEEDING RATE FROM 20ML/HR TO 30ML/HR TO REACH GOAL. PT W/ 10CC RESIDUAL MOSTLY FROM TUBING REPLACED AND INCREASED RATE. PT TOLERATED WELL WILL ENDORSE.
--- NOTE | 2019-01-27 04:27 | NUR ---
EMPLOYEE BENEFITS MANAGER @ BEDSIDE.
[2019-01-27 04:40] LABS: BASOPHIL % 0.2 % (0-2); PLATELET COUNT 169 x10^3mcL (130-400)
[2019-01-27 04:41] LABS: RED CELL DISTRIBUTION WIDTH 17.7 % (11.5-14.5)
[2019-01-27 04:54] LABS: CALCIUM 8.5 mg/dL (8.5-10.1); CARBON DIOXIDE 32.5 mmol/L (21-32); CREATININE SERUM 1.1 mg/dL (0.6-1.0); MAGNESIUM 1.8 mg/dL (1.8-2.4); PHOSPHOROUS 3.8 mg/dL (2.5-4.9); POTASSIUM SERUM 4.3 mmol/L (3.5-5.1)
--- NOTE | 2019-01-27 05:57 | NUR ---
TITRATED PROPOFOL FROM 20MCG TO 15MCG PER PT CALM. PT TOLERATED WELL NO S/S OF AGITATION WILL ENDORSE.
--- NOTE | 2019-01-27 06:51 | NUR ---
DR KING @ [facility]. NURSING UPDATES. POC DISCUSSED. AWAITING ORDERS.
--- NOTE | 2019-01-27 07:39 | NUR ---
RECEIVED REPORT FROM ASHLY CLANCY. PT IS ALERT AND FOLLOWS COMMANDS. INTUBATED AND SEDATED ON PROPOFOL 15 MCG/KG/MIN. 8.0 ETT AT 26 CM LL. OGT PATENT, AND INTACT. GLUCERNA INFUSING AT 30 ML/HR, W/ 50 ML OF RESIDUAL. LUNG SOUNDS SHOW WHEEZING TO BILATERAL UPPER LOBES, DIMINISHED TO BILATERAL LOWER LOBES. VENT SETTINGS INCLUDE RATE 14, TV: 450, O2: 50%, PEEP: 5. S1 S2 HEART SOUNDS AUSCULTATED. PERIPHERAL IV TO R FA, L WRIST PATENT, DRESSING CDI. NS INFUSING AT 70 ML/HR. TRACE EDEMA BUE/BLE. SKIN CONSISTENT WITH ETHNICITY. CAP REFILL <3 SECONDS X4. ABD IS SOFT AND ROUNDED WITH ACTIVE BOWEL SOUNDS X4Q. PT HAS PROTRUSION TO LOWER ABD. NUNO DRAINING VIA GRAVITY. SCD IN PLACE.
--- NOTE | 2019-01-27 08:18 | NUR ---
DR. KING MADE AWARE OF CXR RESULT "CRITICAL FINDING" OF ETT LESS THAN 1 CM ABOVE KATHLEEN. STS SHE WILL INPUT NEW CXR ORDER TO CONFIRM PLACEMENT.
--- NOTE | 2019-01-27 09:14 | NUR ---
TITRATED PROPOFOL FROM 15 MCG/KG/MIN TO 20 MCG/KG/MIN FOR INCREASED AGITATION, AND TRIGGERING VENT.
--- NOTE | 2019-01-27 09:34 | NUR ---
DR. GLOVER, RESIDENTS, DESKTOP SUPPORT MANAGER AND PRIMARY RN AT BEDSIDE FOR ROUNDING. UPDATED ON PT'S STATUS AND CONDITION. AWAITING DR. ORELLANA FOR WEANING PARAMETERS.
--- NOTE | 2019-01-27 13:56 | NUR ---
DR. ORELLANA AT BEDSIDE FOR ASSESSMENT. ALL QUESTIONS AND CONCERNS ANSWERED. PROPOFOL PUT ON HOLD, AND PT PLACED ON CPAP 15/5. PT TOLERATING WELL SO FAR.
--- NOTE | 2019-01-27 14:06 | NUR ---
[facility] Dx: Hypercarbic Respiratory Failure, Pneumonia PMHx: COPD, CHF, HTN, DM PSHx: Tracheostomy placement Labs: CO2 32.5H, Glucos. 162H, BUN 31H, Creat 1.1H, Hgb 11.0L, Hct 34L (01/25) A1C 5.7 Meds: Cephulac, Dextrose 10% Diprivan, Humulin, Lactinex, Lasix, Pepcid, Precision PCX Blood Glucose Strips, Sodium Chl 0.9%, Zofran, heparin sodium Diet: CCHO per charts 01/27/18 TF Intake: 485ml of Glucerna 1.2 @ 10ml/hr with goal of 30. (01/27) Ht: 162.5cm, 63in Wt: 113kg, 248# BMI: 42.9kg/m2 (Obese) Bed scale: 261# IBW:115#, 52kg %IBW: 215% UBW: Unable to ask pt or family due to pt being asleep and intubated and no one at bedside. Age: 53/F Food Allergies: NKFA Skin: F/C secure and intact draining freely to gravity. Lower extremities w/discoloration Calitxo: 12 Edema: Trace edema BUE and BLE GI: Last BM: None noted Trigger: TF/TPN Per H&P: Pt is 53 yo F with PMH of COPD, CHF, HTN and DM was admitted with dry cough x 1 week. Positive associated drowsiness today, SOB. No chest pain, n/v/d. No fever or chills. NO LOC/head trauma. Per daughter pt was hospitalized multiple times before for COPD exacerbation and was intubated, on last admission in October pt underwent tracheostomy placement, after which was discharged to [facility]. Per daughter pt is extremely stubborn and has not been taking any of her home meds for the past month as she thinks she is ok and doesn't need them. Initially pt was in acute respiratory distress, was only able to speak in 2-3 words sentences, used accessory muscles to breath and had labored breathing. Failed trial of bipap, ABG showed severe respiratory acidosis, pt was emergently intubated. Pt Visit: Pt was sleeping and intubated when I entered the room. There was no one at bedside. I spoke with her RN Zeny. Huddles indicated today that pt would try to wean of TF, but when I spoke with Zeny she said it may be a little longer because tube was placed yesterday. Zeny stated she had 50ml residuals, pt tolerating it well. Pt currently receiving Glucerna 1.2 @ 10ml/hr with goal of 30 and 100cc q4h of free water flush. This provides 288kcal and 17g of protein. Problem with: N: No V: No D: No C: Yes Problems with: Chewing: None Swallowing: None Current appetite: pt is currently TF Recent wt change: pt is currently TF %wt change: pt is currently TF Vitamin/Supplement use: Not assessed at this time due to pt asleep and intubated and no one @ bedside Special diet at home: Not assessed at this time due to pt asleep and intubated and no one @ bedside Physical activity: Not assessed at this time due to pt asleep and intubated and no one @ bedside Education: pt is currently TF, will f/u at next visit on CCHO diet Estimated Nutritional Needs Based on adjusted body weight 67kg Energy: 1700-2000kcal/d (25-30kcal/kg) (For maintenance) Protein: 67-80g/d (1.0-1.2g/kg) (For maintenance) Fluid: per doctor Nutrition Diagnosis 1. Inadequate enteral nutrition infusion r/t low goal rate of tube feeding aeb estimated calorie and protein needs. Intervention 1. Recommend continuing with CCHO diet 2. If PO Intake is < 75% then offer Glucerna BID 3. If TF is to be continued then recommending increasing Glucerna 1.2 at 55cc/hr x 24 hrs to provide 1600kcal/79g of protein and free water flush to be determined by doctor. Monitor/Evaluate Goal: PO intake at least 75% of estimated needs Monitor: PO intake, Labs, GI function, tolerance of TF or CCHO diet HR F/U 01/29-01/30
--- NOTE | 2019-01-27 14:17 | NUR ---
DR ORELLANA AT BEDSIDE AND PLACED PT ON CPAP, TO PUT BACK ON AC AFTER AT LEAST 30 MINS ON WHEN PT STARTS SHOWING FATIGUE. SHE ALSO ORDERED TO PUT PT ON CPAP TOMORROW MORNING AND AN ABG TO FOLLOW AFTER AN HOUR.
--- NOTE | 2019-01-27 14:28 | NUR ---
@6056 DR ORELLANA PLACED PT ON CPAP 08/17. PT LASTED FOR 2O MINS BEFORE SHOWING SIGNS OF FATIGUE AND WAS PLACED BACK ON AC MODE. RN MADE AWARE. WILL CONT TO MONITOR
--- NOTE | 2019-01-27 15:50 | NUR ---
PT HAD SECOND LOOSE STOOL, RECTAL TUBE PLACED. PT TOLERATED WELL.
--- NOTE | 2019-01-27 19:30 | NUR ---
REC'D REPORT FROM IBIS LIMON TO ASSUME CARE. PT INTUBATED AND SEDATED ON PROPOFOL 20 MCG/KG/MIN WITH RSS 4. ABLE TO FOLLOW SIMPLE COMMANDS WHEN AWAKE. PERRLA NOTED. 8.0 ETT SECURED, 26 CM @ LL. TRACHEA MIDLINE. NO JVD NOTED. ETT TO VENT: AC MODE, RATE 14, TV 450, PEEP 5, FIO2 50%. RESPS E/U. CHEST RISE EQUAL AND SYMMETRICAL. LUNG SOUNDS CLEAR BUL, DIM MONCHO BASES. OFFICE CORRESPONDENT IN PLACE SHOWING NSR. CHEST WALL STABLE. OGT INTACT AND SECURED. GLUCERNA INFUSING @ 30ML/HR, FWF 100ML Q4H. ABD OBESE AND SOFT. BOWEL SOUNDS ACTIVE. FLEXISEAL IN PLACE DRAINING VIA GRAVITY LOOSE STOOL. F/C INTACT AND PATENT, DRAINING VIA GRAVITY YELLOW URINE. IV TO RFA AND L WRIST INTACT AND PATENT, NS INFUSING @ 70 ML/HR. SKIN WARM DRY TO TOUCH. SCDS IN PLACE. BUE SOFT WRIST RESTRAINTS IN PLACE FOR PT SAFETY. ALL NEEDS MET AT THIS TIME. WILL CONTINUE TO MONITOR.
--- NOTE | 2019-01-27 23:40 | NUR ---
PT SEDATED, NO S/SX OF PAIN PER FLACC SCALE. NO SIGNS OF DISTRESS NOTED. PT REPOSITIONED AT THIS TIME. FLEXISEAL IN PLACE DRAINING VIA GRAVITY.
[2019-01-28] VITALS (17 sets, daily range): BP systolic 113–193; BP diastolic 73–119
--- NOTE | 2019-01-28 00:30 | NUR ---
PT AWAKE AND AGITATED, PROPOFOL INCREASED TO 25 MCG/KG/MIN.
--- NOTE | 2019-01-28 00:43 | NUR ---
PTS FLEXISEAL LEAKING D/T BEING KINKED. LOOSE BROWN STOOL NOTED, PT ON LACTULOSE. [place] CARE PROVIDED, PT ABLE TO ASSIST WITH TURNING. F/C CARE PROVIDED, LINENS CHANGED. VAP CARE PROVIDED AT THIS TIME. PT REPOSTIONED TO COMFORT.
--- NOTE | 2019-01-28 02:13 | NUR ---
RECEIVED REPORT FROM ALFA LIMON. ALL QUESTIONS AND CONCERNS ADDRESSED. WILL RESUME CARE.
--- NOTE | 2019-01-28 02:20 | NUR ---
REPORT GIVEN TO EMIR LIMON TO ASSUME CARE.
[2019-01-28 05:02] LABS: BASOPHIL % 0.1 % (0-2); PLATELET COUNT 171 x10^3mcL (130-400)
[2019-01-28 05:06] LABS: RED CELL DISTRIBUTION WIDTH 18.2 % (11.5-14.5)
[2019-01-28 05:17] LABS: CALCIUM 8.5 mg/dL (8.5-10.1); CARBON DIOXIDE 31.8 mmol/L (21-32); CREATININE SERUM 1.1 mg/dL (0.6-1.0); POTASSIUM SERUM 3.7 mmol/L (3.5-5.1)
--- NOTE | 2019-01-28 07:11 | NUR ---
REPORT GIVEN TO HENRY LIMON. ALL QUESTIONS AND CONCERNS ADDRESSED.
--- NOTE | 2019-01-28 07:12 | NUR ---
REPORT GIVEN BY ASHLY FIELD. ALL QUESTIONS ANSWERED.
--- NOTE | 2019-01-28 07:15 | NUR ---
PATIENT IS BED, BED TO THE LOWEST POSITION. PATIENT IS INTUBATED, 8.0 ETT, 26 CM LL. PATIENT IS SEDATED ON PROPOFOL INFUSING AT 20 MCG/KG/MIN. RSS: 4. PATIENT IS VENTED ON AC MODE, AT A RATE OF 14, FIO2 OF 50%, TIDAL VOLUME OF 450 AND PEEP OF 5. PATIENT IS BREATHING ADEQUATELY AND THERE ARE NO SIGNS OF RESPIRATORY DISTRESS. PATIENT HAS OGT IN PLACE, INTACT AND SECURED. ENTRY LEVEL DRAFTER IN PLACE, NSR. ABD IS SOFT AND DISTENDED. PATIENT HAS TUBE FEEDINGS, GLUCERNA, INFUSING AT 30 ML/HR WITH 100 FWF Q4. PATIENT HAS TRACE EDEMA NOTED TO EXTREMITIES. RFA IV AND L WRIST IV INTACT AND SECURED, NS INFUSING AT 70ML/HR. FLEXISEAL IN PLACE WITH BROWN LOOSE STOOL. NUNO IN PLACE WITH YELLOW URINE. PATIENT HAS BLE LEG SEQUENTIAL DEVICE, HEELS ARE OFF LOADED WITH PILLOW. PATIENT STABLE, WILL CONTINUE TO MONITOR.
--- NOTE | 2019-01-28 08:16 | NUR ---
SPO2 95% ON FIO2 50%, TITRATED TO 40%.
--- NOTE | 2019-01-28 10:15 | NUR ---
SEDATION OFF AT THIS TIME. PER RT, WILL START CPAP SOON.
--- NOTE | 2019-01-28 10:30 | NUR ---
PATIENT ROUNDS WITH DR. GLOVER AND RESIDENTS. CHARGE NURSE AND PRIMARY NURSE AT BEDSIDE. UPDATES PROVIDED AND POC DISCUSSED.
--- NOTE | 2019-01-28 10:33 | NUR ---
CPAP AT THIS TIME
--- NOTE | 2019-01-28 12:18 | NUR ---
POST ABG COLLECTION AND RESULTS VERIFIED WHILE ON CPAP WITH PSV PT WAS PLACED BACK ON A/C VC WITH PREVIOUSLY CHARTED AND ORDERED SETTINGS. VENT SETTINGS ARE FOLLOWS: A/C VC RR 14, VT 450, PEEP +5, AND FIO2 40%.
--- NOTE | 2019-01-28 12:18 | NUR ---
PATIENT ON AC MODE AT THIS TIME, RATE OF 14, TV: 450, FIO2:40% AND PEEP OF 5.
--- NOTE | 2019-01-28 12:20 | NUR ---
PATIENT AGITATED AND PULLING LINENS, AT THIS TIME. PROPOFOL ON AT 5MCG/KG/MIN. WILL CONTINUE TO MONITOR.
--- NOTE | 2019-01-28 13:25 | NUR ---
PATIENT REMAINS AGITATED. SEDATION INCREASED TO 10 MCG/KG/MIN. WILL CONTINUE TO MONITOR.
--- NOTE | 2019-01-28 14:21 | NUR ---
DR. FERGUSON AT BEDSIDE. ALL UPDATES PROVIDED. PER DR FERGUSON NS NEEDS TO BE OFF AT THIS TIME.
--- NOTE | 2019-01-28 15:50 | NUR ---
PATIENT REMAINS AGITATED AT THIS TIME. PROPOFOL TITRATED TO 20 MCG/KG/MIN. WILL CONTINUE TO MONITOR.
--- NOTE | 2019-01-28 18:00 | NUR ---
STOOL COMING OUT FO FLEXISEAL. FULL CLEANSE AND LINEN CHANGE. PATIENT STABLE, WILL CONTINUE TO MONITOR.
--- NOTE | 2019-01-28 19:04 | NUR ---
REPORT GIVEN TO ASHLY RAMSEY. ALL QUESTIONS ANSWERED.
--- NOTE | 2019-01-28 19:15 | NUR ---
RECEIVED PT INTUBATED AND SEDATED ON PROPOFOL @ 20 MCG/KG/MIN, RSS=3. PT ABLE TO FOLLOW SIMPLE COMMANDS SQUEEZE HANDS AND LIFT ARMS. PUPILS 4MM BRISK RESPONSE TO LIGHT B/L, PERRLA. GAG REFLEX PRESENT WHEN SUCTIONED. NO FACIAL DROOP NOTED.PT INTUBATED TO VENT, INTACT. OGT INTACT AND SECURED, AIR AUSCULTATED OVER GASTRIC REGION FOR PLACEMENT, XRAY FOR CONFIRMATION. TRACHEA MIDLINE, NO DRAINAGE TO EENT.8.0 ETT, 26 LL. ORAL CARE PROVIDED PER VAP PROTOCOL. AC MODE, VT 450, FIO2 40%, RATE 14, PEEPT 5. LUNG SOUNDS CLEAR TO BUL, DIMINISHED BASES. CHEST RISE/FALL SYMMETRIC, E/U BREATHING, NO ACUTE RESP DISTRESS.S1/S2 SOUNDS HEARD, CHEST WALL STABLE, NO S/S OF CHEST PAIN.SKIN COLOR CONSISTENT WITH ETHNICITY, CAP REFILL <3 SEC, PULSES MODERATE TO BUE, WEAK BUT PALPABLE TO BLE. TRACE EDEMA NOTED TO BUE/BLE. SCDS INTACT. GEN WEAKNESS. JOINTS INTACT, NO CONTRACTURES/DEFORMITIES NOTED. PT ON TURN SCHED Q2H. RESTRAINTS OFF AT THIS TIME, WILL REASSESS FOR NEED.TUBE FEEDING GLUCERNIA @ 30 ML/HR, FWF 100 ML Q4H, GRV=20. NO S/S OF N/V.ACTIVE BOWEL SOUNDS X4, ABD FIRM/ROUND. FLEXISEAL INTACT DRAINING LIGHT BROWN LOOSE STOOL.F/C DRAINING TO GRAVITY CLEAR YELLOW URINE, INTACT. NO LABIAL EDEMA OR DISCHARGE NOTED.IV TO RFA, LFA, PATENT, NO S/S OF INFILTRATION, DRESSING CDI. BLE FEET HAS NOTED BLUISH COLOR, SKIN INTACT. BED AT LOWEST SETTING, CALL LIGHT WITHIN REACH, WILL CONT TO MONITOR.
--- NOTE | 2019-01-28 21:00 | NUR ---
PROPOFOL TITRATED TO 30 MCG/KG/MIN TO ACHIEVE RSS=4. RSS=3 AT THIS TIME.
[2019-01-29] VITALS (18 sets, daily range): BP systolic 97–129; BP diastolic 68–87
--- NOTE | 2019-01-29 05:10 | NUR ---
PT CLEANED AND PROVIDED FULL BED BATH, CHUCKS, GOWN, SHEETS CHANGED, NUNO CARE PROVIDED.
[2019-01-29 05:38] LABS: BASOPHIL % 0.1 % (0-2); PLATELET COUNT 170 x10^3mcL (130-400); RED CELL DISTRIBUTION WIDTH 17.6 % (11.5-14.5)
[2019-01-29 05:55] LABS: CALCIUM 8.5 mg/dL (8.5-10.1); CARBON DIOXIDE 31.8 mmol/L (21-32); CREATININE SERUM 1.1 mg/dL (0.6-1.0); MAGNESIUM 2.1 mg/dL (1.8-2.4); PHOSPHOROUS 3.6 mg/dL (2.5-4.9); POTASSIUM SERUM 3.8 mmol/L (3.5-5.1)
--- NOTE | 2019-01-29 06:30 | NUR ---
PROPOFOL TITRATED TO 20 MCG/KG/MIN, RSS=5 AT THIS TIME.
--- NOTE | 2019-01-29 07:03 | NUR ---
GAVE REPORT TO ASHLY GONZALEZ. UPDATES PROVIDED, QUESTIONS ANSWERED.
--- NOTE | 2019-01-29 10:38 | NUR ---
DR. GLOVER, RESIDENTS, IMPLANT COORDINATOR AND PRIMARY RN AT BEDSIDE FOR MORNING ROUNDS. PLAN OF CARE DISCUSSED. WILL CONT TO MONITOR.
--- NOTE | 2019-01-29 14:34 | NUR ---
Follow-up Nutrition Assessment: [facility] ICU-1 Dx:Hypercarbic respiratory failure and PNA Labs:(01/29) BH, BUN:37H, Cr:1.1H, H/H:11.4/34L Meds: D10%, Diprivan, Humulin PRN, Lactinex, Lactulose, Norvasc, Pepcid, Pulmicort, Senokot, Solumedrol, Tylenol, Zofran, Zosyn, Heparin Current Nutrition Support: Glucerna 1.2 @30ml/hr, FWF:100ml q 4hr via OGT. TF intake: (01/27)485ml (01/28)1019ml (01/29)756ml TF intake x3 days:753ml I/O: (01/27)3143/500(+2643ml) (01/28)3694/2475(+1219ml) (01/29)2687/1075(+1612ml) Residuals: (01/27)40ml, 50ml, 50ml, 50ml, 10ml (01/28)25ml, 5ml, 5ml, 5ml, 20ml, 20ml (01/29)20ml, 0ml Weights: (01/27)113.398kg (01/29) 117kg, Weight increase possibly due to positive fluid balance. Skin: optifoam to coccyx Edema: trace edema to BUE and BLE Last BM: +flexiseal, 01/29 Per progress note 01/29: Dr. Ambrosio: no acute events overnight. Pt continues to be intubated and arousable. We will continue to follow recommendations of Demand Manager Pt was seen intubated, sedated on propofol at 20mcg/kg/min with TF running at 30ml/hr, FWF:100ml q 4hr. Per RN, pt has been tolerating TF with minimal residuals. Spoke to Dr. Ambrosio over the phone about increasing goal rate to 50ml/hr to better meet pts estimated needs and doctor agreeable. Estimated Nutritional Needs based on actual body weight upon admission:111kg Vent in L/min:8.37 Temperature:37.3C MAP:100 Energy: 1888 vs. 1221-1554kcal/day ([id number] vs 11-14kcal/kg of actual BW) Protein: 80-94g/day (1.2-1.4g/kg of adjusted bw 67kg) Fluid: per doctor Nutrition Diagnosis 1. Inadequate enteral infusion related to low goal rate of TF as evidenced by estimated kcal and protein needs (ongoing). Intervention 1. Recommend increase goal rate of Glucerna 1.2 to 50ml/hr, FWF:50ml q 4hr. This provides 1440kcal, 72g protein and 1566ml total fluid daily. Propofol at 20mcg/kg/min provides an additional 352 kcal. Total kcal:1792kcal and 72g protein. This meets 95% caloric needs and 90% protein needs. Monitor/Evaluate Previous goal: TF intake at least 75% of estimated needs (not met) Goal: TF intake at least 75% of estimated needs Monitor: TF intake/tolerance, Labs, GI function and weights F/U in 2-3 days as high risk: 01/31-
--- NOTE | 2019-01-29 14:35 | NUR ---
1. Recommend increase goal rate of Glucerna 1.2 to 50ml/hr, FWF:50ml q 4hr. This provides 1440kcal, 72g protein and 1266ml total fluid daily. Propofol at 20mcg/kg/min provides an additional 352 kcal. Total kcal:1792kcal and 72g protein. This meets 95% caloric needs and 90% protein needs.
--- NOTE | 2019-01-29 14:43 | NUR ---
DR FERGUSON AT BEDSIDE TO ASSESS PT. PLAN TO DO CPAP TRIAL TOMMORROW.
--- NOTE | 2019-01-29 19:05 | NUR ---
RECEIVED PT INTUBATED AND SEDATED ON PROPOFOL @ 25 MCG/KG/MIN, RSS=4. PT ABLE TO FOLLOW SIMPLE COMMANDS SQUEEZE HANDS/LIFT ARMS. PUPILS 4MM BRISK RESPONSE TO LIGHT B/L, PERRLA. GAG REFLEX PRESENT WHEN SUCTIONED. NO FACIAL DROOP NOTED.PT INTUBATED TO VENT, INTACT. OGT INTACT AND SECURED, AIR AUSCULTATED OVER GASTRIC REGION FOR PLACEMENT, XRAY FOR CONFIRMATION. TRACHEA MIDLINE, NO DRAINAGE TO EENT.8.0 ETT, 26 LL. ORAL CARE PROVIDED PER VAP PROTOCOL. AC MODE, VT 450, FIO2 40%, RATE 14, PEEP 5. LUNG SOUNDS CLEAR TO BUL, DIMINISHED BASES. CHEST RISE/FALL SYMMETRIC, E/U BREATHING, NO ACUTE RESP DISTRESS.S1/S2 SOUNDS HEARD, CHEST WALL STABLE, NO S/S OF CHEST PAIN.SKIN COLOR CONSISTENT WITH ETHNICITY, CAP REFILL <3 SEC, PULSES MODERATE TO BUE, WEAK BUT PALPABLE TO BLE. TRACE EDEMA NOTED TO BUE/BLE. SCDS INTACT. GEN WEAKNESS. JOINTS INTACT, NO CONTRACTURES/DEFORMITIES NOTED. PT ON TURN SCHED Q2H. RESTRAINTS OFF AT THIS TIME, WILL REASSESS FOR NEED, PT GESTURES UNDERSTANDING OF NOT TO PULL ETT/OGT. ISOGEL MATTRESS INTACT.TUBE FEEDING GLUCERNIA @ 30 ML/HR, FWF 100 ML Q4H, GRV=20. NO S/S OF N/V.ACTIVE BOWEL SOUNDS X4, ABD FIRM/ROUND. FLEXISEAL INTACT DRAINING LIGHT BROWN LOOSE STOOL. PT OBESE.F/C DRAINING TO GRAVITY TEA COLORED URINE, INTACT. NO LABIAL EDEMA OR DISCHARGE NOTED.IV TO RFA, LFA, PATENT, NO S/S OF INFILTRATION, DRESSING CDI. SKIN WARM/DRY TO TOUCH. OPTIFOAM TO SACRALCOCCYX, CDI. TEACHING PROVIDED TO BEST OF MY ABILITY. PT GESTURES UNDERSTANDING. BED AT LOWEST SETTING, CALL LIGHT WITHIN REACH, WILL CONT TO MONITOR.
--- NOTE | 2019-01-29 22:00 | NUR ---
PROPOFOL TITRATED TO 30 MCG/KG/MIN TO ACHEIVE RSS=4, RSS=3 AT THIS TIME.
[2019-01-30] VITALS (20 sets, daily range): BP systolic 101–158; BP diastolic 67–108; Ht 162.6 cm; Wt 115.7 kg
--- NOTE | 2019-01-30 05:00 | NUR ---
PT CLEANED AND PROVIDED FULL BED BATH, CHUCKS, GOWN, SHEETS CHANGED, NUNO CARE PROVIDED.
[2019-01-30 05:18] LABS: PLATELET COUNT 163 x10^3mcL (130-400)
[2019-01-30 05:31] LABS: BASOPHIL % 0 % (0-2); RED CELL DISTRIBUTION WIDTH 17.8 % (11.5-14.5)
[2019-01-30 05:48] LABS: CALCIUM 8.6 mg/dL (8.5-10.1); CARBON DIOXIDE 31.5 mmol/L (21-32); CREATININE SERUM 1.1 mg/dL (0.6-1.0); MAGNESIUM 2.2 mg/dL (1.8-2.4); PHOSPHOROUS 3.7 mg/dL (2.5-4.9); POTASSIUM SERUM 4.2 mmol/L (3.5-5.1)
--- NOTE | 2019-01-30 06:00 | NUR ---
PROPOFOL TITRATED TO 25 MCG/KG/MIN, RSS=5 AT THIS TIME, TO ACHIEVE RSS=4.
--- NOTE | 2019-01-30 07:00 | NUR ---
DR. KING AT BEDSIDE FOR MSE. UPDATES PROVIDED, QUESTIONS ANSWERED.
--- NOTE | 2019-01-30 07:02 | NUR ---
XRAY TECHS AT BEDSIDE FOR CHEST XRAY
--- NOTE | 2019-01-30 07:09 | NUR ---
GAVE REPORT TO ASHLY FIGUEROA. UPDATES PROVIDED, QUESTIONS ANSWERED.
--- NOTE | 2019-01-30 07:10 | NUR ---
REPORT GIVEN BY ASHLY RAMSEY ALL QUESTIONS ANSWERED.
--- NOTE | 2019-01-30 07:15 | NUR ---
PATIENT IS IN BED, BED IS TO THE LOWEST POSITION. PATIENT IS INTUBATED, 8.0 ETT AND 26 LL. PATIENT IS SEDATED ON PROPOFOL INFUSING AT 25 MCG/KG/MIN. RSS: 4. PATIENT IS ABLE TO FOLLOW SIMPLE COMMANDS. PATIENT IS VENTED ON AC MODE AT A RATE OF 14, TIDAL VOLUME OF 450,FIO2 OF 40% AND PEEP OF 5. PATIENT IS BREATHING ADEQUATELY AND THERE ARE NO SIGNS OF RESPIRATORY DISTRESS. FOOTWEAR SALES REPRESENTATIVE IN PLACE, NSR. PATIENT HAS SOFT ROUNDED ABD. FLEXISEAL IN PLACE, DRAINING MODERATE AMOUNT OF LOOSE BROWN STOOL. NUNO CATHETER IN PLACE, URINE IS YELLOW IN COLOR WITH POOR OUTPUT. PATIENT HAD LFA AND RFA IVS INTACT. SEQUENTIAL LEG COMPRESSIONS APPLIED, HEELS OFF LOADED WITH PILLOWS, CALL LIGHT WITHIN REACH, WILL CONTINUE TO MONITOR.
--- NOTE | 2019-01-30 07:45 | NUR ---
DR. ORELLANA AT BEDSIDE, ALL UPDATES PROVIDED. PER DR. ORELLANA, HAVE PATIENT OFF OF PROPOFOL AT THIS TIME. CPAP TRIAL WILL BE SOON, AND ALSO FENTANYL AND VERSED WILL BE ORDERED PER DR. ORELLANA. PATIENT STABLE, WILL CONTINUE TO MONITOR.
--- NOTE | 2019-01-30 08:15 | NUR ---
PATIENT ON CPAP AT THIS TIME.
--- NOTE | 2019-01-30 08:15 | NUR ---
PT PLACED ON CPAP 5 W/ PSV [address] ORELLANA.
--- NOTE | 2019-01-30 09:36 | NUR ---
PT COMPLAINING OF SHORTNESS OF BREATH AND GAGGING ON ETT WHILE ON CPAP 5 W/ PSV 12, PT PLACED BACK ON A/C VC WITH PREVIOUSLY ORDERED AND CHARTED VENT SETTINGS.
--- NOTE | 2019-01-30 09:36 | NUR ---
PATIENT BACK ON AC MODE, RATE OF 15, TIDAL VOLUME OF 450, FIO2 OF 40% AND PEEP OF 5. PER RT PATIENT HAVING A HARD TIME, AND GESTURING TO YES TO HAVING THE MACHINE BACK ON. WILL CONTINUE TO MONITOR.
--- NOTE | 2019-01-30 09:40 | NUR ---
PATIENT ROUNDS WITH DR. GLOVER AND RESIDENTS. CHARGE NURSE AND PRIMARY NURSE AT BEDSIDE. UPDATES PROVIDED AND POC DISCUSSED. WILL CONTINUE TO MONITOR.
--- NOTE | 2019-01-30 09:45 | NUR ---
DR KING MADE ROUNDS. NOTICED URINE IS BLOOD TINGED. PLAN TO HOLD HEPARIN, AND CONTINUE TO MONITOR.
--- NOTE | 2019-01-30 10:21 | NUR ---
RT DUGLAS MADE AWARE ABOUT CXR RESULTS REGARDING ETT PLACEMENT AT THE [facility]. RT DUGLAS SPOKE WITH DR. ORELLANA AND NEW ORDERS TO SEDATE PATIENT AND PULL ETT OUT BY 2 CM. THEN GET ANOTHER CXR TO CONFIRM ETT PLACEMENT. ASHLY FIGUEROA MADE AWARE.
--- NOTE | 2019-01-30 10:51 | NUR ---
PATIENT IS HAVING DIFFICULTY ON THE VENTILATOR AND PER THE RT, RT WILL WITHDRAW THE ETT TUBE BECAUSE IT IS TOO FAR IN. SEDATION STARTED AT THIS TIME. FENTANYL INFUSING AT 0.5 MCG/KG/HR AND VERSED INFUSING AT 0.5 MG/HR. PATIENT CURRENTLY STABLE, WILL CONTINUE TO MONITOR.
--- NOTE | 2019-01-30 12:00 | NUR ---
ETT WITHDREW 2CM AND NOW PLACED AT 24CM AT THE LIP.
--- NOTE | 2019-01-30 19:00 | NUR ---
RECEIVED REPORT FROM HENRY LIMON. ALL QUESTIONS ANSWERED AND ADDRESSED. WILL RESUME CARE.
--- NOTE | 2019-01-30 19:05 | NUR ---
RECEIVED PT INTUBATED AND SEDATED ON VERSED @ 0.5 MCG/HR AND FENTANYL @ 0.5 MCG/KG/HR. ABLE TO FOLLOW COMMANDS. RESPONDS TO VERBAL, TACTILE, AND PAINFUL STIMULUS. RSS = 3. DENIES HEADACHE, CP, SOB BY GESTURING/WRITING. ETT TO VENT: VCV/AC MODE = 5 PEEP, 40% FIO2, 450 VT, 14 RATE. BREATHING E/U. NO SIGNS OF RESP DISTRESS NOTED. TRACE EDEMA NOTED ALL THROUGHOUT BODY. MOD PULSES TO BUE AND BLE. OGT INTACT AND SECURED. GLUCERNA 30 CC/HR, FWF 100ML Q4H. PIV TO RFA AND LFA INTACT, PORTS PATENT, DRESSING CDI. F/C INTACT AND DRAINING VIA GRAVITY. POOR OUTPUT NOTED. URINE IS TEA-COLORED. CYANOTIC DISCOLORATION TO BILATERAL FEET NOTED. OPTIFOAM TO BUTTOCKS NOTED. X3 SIDE RAILS UP, BED IN LOWEST POSITION, CALL LIGHT WITHIN REACH.
--- NOTE | 2019-01-30 19:29 | NUR ---
REPORT GIVEN TO ASHLY FIELD. ALL QUESTIONS ANSWERED.
[2019-01-31] VITALS (18 sets, daily range): BP systolic 100–145; BP diastolic 54–88
[2019-01-31 05:48] LABS: BASOPHIL % 0.1 % (0-2); PLATELET COUNT 163 x10^3mcL (130-400)
[2019-01-31 05:54] LABS: CALCIUM 9.3 mg/dL (8.5-10.1); CHLORIDE SERUM 101 mmol/L (98-107); GFR1 > 60 mL/min; GLUCOSE SERUM 156 mg/dL (74-106); MAGNESIUM 2.4 mg/dL (1.8-2.4); PHOSPHOROUS 3.9 mg/dL (2.5-4.9); POTASSIUM SERUM 4.4 mmol/L (3.5-5.1); SODIUM SERUM 132 mmol/L (136-145)
[2019-01-31 05:55] LABS: RED CELL DISTRIBUTION WIDTH 17.8 % (11.5-14.5)
--- NOTE | 2019-01-31 07:04 | NUR ---
GIVEN REPORT TO CARLIN LIMON. ALL QUESTIONS/CONCERNS ADDRESSED AND ANSWERED.
--- NOTE | 2019-01-31 07:30 | NUR ---
PT IS SEDATED AND ORALLY INTUBATED, PT IS ABLE TO FOLLOW VERBAL COMMANDS AND WRITE TO COMMUNICATE. VERSED AT 0.5MG/HR AND FETANYL 0.5MCG/KG/MIN RSS4. ETT SECURE AND OGT SECURE. PT ON AC/ VCV MODE, NO SIGNS OF DISTRESS. NUNO CATH DRAINING WELL BY GRAVITY. TF AT 30ML/HR FWF 100ML/ Q4HRS. NO RESIDUALS. FLEXI SEAL IN PLACE DRAINING BY GRAVITY. BED AT LOWEST POSITIONING CALL LIGHT WITHIN REACH.
--- NOTE | 2019-01-31 08:14 | NUR ---
RT MOSHER.Heath AT BEDSIDE PROVIDING SUCTION AND BREATHIN TX, PT TOLERATIND WELL. 99%PO2SAT, RR 14.
--- NOTE | 2019-01-31 08:29 | NUR ---
DR. ORELLANA AT BEDSIDE DISCUSSING PLAN OF CARE WITH PT BY WRTING AND VERBAL COMMUNICATIONS. PER DR. ORELLANA FOR PT TO WORK ON DEEP BREATHING, CPAP AND TO CONTINUE WEANNING. PER DR. ORELLANA TO DECREASE LACTOLUCE TO ONCE DAILY AND INCREASE TUBE FEEDING TO 40ML/HR.
--- NOTE | 2019-01-31 08:31 | NUR ---
KATHY. Joe RT PUT PT ON CPAP PT TOLERATING WELL 97%PO2SAT.
--- NOTE | 2019-01-31 11:02 | NUR ---
PAGED DR. ORELLANA RE: CRITICAL ABG RESULTS. AWAITING CALL. NOTIFIED NURSE DAVID RE: RESULTS.
--- NOTE | 2019-01-31 11:48 | NUR ---
PLACED PT BACK ON ACVC PER ABG RESULT. CO2:77.7. DR. ORELLANA NOTIFIED
--- NOTE | 2019-01-31 12:37 | NUR ---
Follow-up Nutrition Assessment: Dx: Hypercarbic Respiratory failure, PNA Labs: 01/31 Na 132L, BG 156H, BUN 42H, Hgb 11.8L Meds: D10%, Humulin, Lactinex, Pepcid, Senokot, Solu-medrol, Zofran Current Nutrition Support: Glucerna 1.2 at 30ml/hr, FWF 100ml q 4hr via OGT x 5 days Provides: 864 kcal, 43 gm protein and 1180ml total fluid daily Meets: 55% of upper end of estimated calories and 46% of upper end of estimated protein needs. TF intake: (01/30) 748ml, (01/29) 756ml I and O: (01/31) 2041/1675 +366ml, (01/30) 2187/950 +1237ml, (01/29) 2687/1075 +1612ml Residuals TF: 01/31 0ml, 0ml; 01/30 5ml, 0ml, 5ml, 5ml, 5ml, 20 ml Weights: (01/31) 125 kg, (01/30) 117 kg, (01/29) 117 kg Skin: is warm and dry. Optifoam is CDI. Edema: none Last BM: +Flexiseal 01/31 Pt seen sleeping in bed w/ RT at bedside. Per RN notes, CPAP weaning ongoing and pt has been tolerating it well. RN also reported that pt is able to communicate by writing. MD has order to increase TF rate to 40ml/hr (01/31 0830). Which will provide 1152 kcal, 58 gm protein and 1373ml total fluid per day which meets: 74% of upper end of estimated calorie needs and 62% of upper end of estimated protein needs. Pt is not yet meeting adequate nutrition w/ current EN regimen and recent MD order of EN rate increase to 40ml/hr. Estimated Nutritional Needs based on actual body weight upon admission: 111kg Energy: 5221-8937 kcal/day (11-14 kcal.kg actual BW) Protein: 80-94 gm/day (1.2-1.4 gm/kg of Adj IBW 67 kg) Fluid: per MD. Nutrition Diagnosis 1. Inadequate EN infusion r/t low goal rate of EN support AEB EN intake <75% of estimated needs. (*ongoing) Intervention 1. Recommend increase EN goal rate. Glucerna 1.2 at 50ml/hr (goal rtae), FWF 50ml q4hr via OGT. Provides 1440 kcal, 72 gm protein and 1566ml total free water daily. Meets: 93% of upper end of estimated calorie needs and 77% of upper end of estimated protein needs. Monitor/Evaluate Previous goal: TF intake at least 75% of estimated needs (not met) Goal: TF at least 75% of estimated needs Monitor: TF intake, Labs, GI function, weights F/U in 2-3 days as high risk (02/02-02/03)
--- NOTE | 2019-01-31 12:43 | NUR ---
ASSESS PT AT BEDSIDE, PROVIDED VAP CARE. NO ACUTE CHANGE PLEASE READ SHIFT REASSESSMENT FOR MORE DETAILS.
--- NOTE | 2019-01-31 15:30 | NUR ---
PROVIDED VAP CARE AND REPOSITIONED PT. PT IS ABLE TO FOLLOW VERBAL COMMANDS AND GESTURES NEEDS. BED AT LOW AND PT SITTING IN BED WATCHING TV.
--- NOTE | 2019-01-31 19:14 | NUR ---
REPORT GIVEN CORNELIA LIMON. ENDORSED ALL CARE.
--- NOTE | 2019-01-31 19:16 | NUR ---
RECEIVED REPORT FROM CORTEZ RN. WILL CONTINUE CARE AND TREATMENT PLAN.
--- NOTE | 2019-01-31 19:20 | NUR ---
RECEIVED PT INTUBATED 8.0 ETT AT 24LL AND SEDATED ON VERSED 0.5 MG/HR AND FENTANYL 0.5MCG/KG/HR. PT OPENS EYES SPONTANEOUSLY, IS ABLE TO FOLLOW SIMPLE COMMANDS, AND CAN MAKE NEEDS KNOWN BY GESTURING AND WRITING ON PAPER. ETT HOOKED UP TO VENT VCV-AC MODE WITH SETTINGS FIO2 40%, RATE 14, VT 450, PEEP 5. BREATHING E/U. LUNG SOUNDS CTA. NSR ON SENIOR CHEMICAL ENGINEER. PULSES MODERATE TO BUE AND WEAK TO BLE. CAP REFILL <3 SEC. OGT INTACT AND SECURED TO ETT WITH CONTINUOUS OGT FEEDING OF GLUCERNA 40ML/HR, FWF 100CC Q4HR WITH NO RESIDUAL NOTED. NO N/V. FLEXISEAL IN PLACE DRAINING VIA GRAVITY ROSS LOOSE STOOL. NUNO CATHETER IN PLACE DRAINING STRAW COLORED URINE. L AND R 20G IV SITE SHOW NO S/SX OF INFILTRATION OR PHLEBITIS. PT CALM RESTING IN BED AT THIS TIME. BED IN LOW POSITION. CALL LIGHT WITHIN REACH. WILL CONTINUE TO MONITOR.
--- NOTE | 2019-01-31 20:17 | NUR ---
RT AT BEDSIDE ASSESSING PT AND GIVING BREATHING TX. PT TOLERATING WELL.
--- NOTE | 2019-01-31 23:10 | NUR ---
ASSESSED PT AT BEDSIDE. NAD NOTED. BREATHING E/U. TURNED AND REPOSITIONED PT TO SUPINE POSITION WITH BONY PROMINENCES OFFLOADED. SCD'S IN PLACE. WILL CONTINUE TO MONITOR.
[2019-02-01] VITALS (19 sets, daily range): BP systolic 103–157; BP diastolic 44–98
--- NOTE | 2019-02-01 04:35 | NUR ---
INDUSTRIAL GAS SERVICE HELPER AT BEDSIDE FOR BLOOD DRAW.
[2019-02-01 05:14] LABS: CALCIUM 9.2 mg/dL (8.5-10.1); CARBON DIOXIDE 33.8 mmol/L (21-32); CHLORIDE SERUM 103 mmol/L (98-107); CREATININE SERUM 0.9 mg/dL (0.6-1.0); GFR1 > 60 mL/min; GLUCOSE SERUM 165 mg/dL (74-106); MAGNESIUM 2.5 mg/dL (1.8-2.4); PHOSPHOROUS 3.4 mg/dL (2.5-4.9); POTASSIUM SERUM 4.8 mmol/L (3.5-5.1); SODIUM SERUM 140 mmol/L (136-145)
[2019-02-01 05:42] LABS: PLATELET COUNT 151 x10^3mcL (130-400)
--- NOTE | 2019-02-01 05:45 | NUR ---
PT CALM IN BED AT THIS TIME. PROVIDED PT WITH BED BATH AND NUNO CATHETER CARE. URINE OUTPUT -520CC OF STRAW COLORED URINE. ALL NEEDS MET AND ANTICIPATED THROUGHOUT SHIFT. BED IN LOW POSITION. CALL LIGHT WITHIN REACH. WILL ENDORSE TO ONCOMING RN.
[2019-02-01 06:01] LABS: BASOPHIL % 0 % (0-2); RED CELL DISTRIBUTION WIDTH 17.9 % (11.5-14.5)
--- NOTE | 2019-02-01 06:54 | NUR ---
DR. KING AT BEDSIDE ASSESSING PT. UPDATES PROVIDED.
--- NOTE | 2019-02-01 07:10 | NUR ---
GAVE REPORT TO MARÍA ELENA LIMON. ALL QUESTIONS/CONCERNS ADDRESSED.
--- NOTE | 2019-02-01 07:15 | NUR ---
RECIEVED REPORT FROM ASHLY LOCKE TO ASSUME ALL CARE. ALL QUESTIONS AND CONCERNS ADDRESSED. PATIENT IS SEDATED ON FENTANYL AND VERSED DRIP. RSS-3. ETT TO VENT. RESPIRATIONS ARE EQUAL AND SYMMETRICAL. NO SIGNS OF DISTRESS. GLUCERNA TUBE FEEDINGS INFUSING VIA OGT. F/C IN PLACE AND SECURED DRAINING TO GRAVITY. FLEXI-SEAL IN PLACE AND SECURED WITH MINIMAL LOOSE STOOL NOTED VIA GRAVITY. IV NOTED TO RFA AND LFA IN PLACE WITH NO SIGNS OF INFILTRATION NOTED. PATIENT POSITIOEND SUPINE OFFLOADED WITH PILLOWS AND HOB ELEVATED. ISOGEL MATRESS IN USE. SCD'S AT BEDSIDE. BED TO LOWEST POSITION, SIDE RAILS UP X3, CALL LIGHT WITHIN REACH. WILL CONTINUE TO MONITOR.
--- NOTE | 2019-02-01 07:45 | NUR ---
RT YARIEL AT BEDSIDE AND PLACED PATIENT ON C-PAP 08/17. SEDATION INCLUDING THE VERSED AND FENTANYL DRIP TITRATED OFF FOR SEDATION VACATION FOR C-PAP TRIALS. WILL CONTINUE TO MONITOR.
--- NOTE | 2019-02-01 09:24 | NUR ---
DR. CAMACHO, DR. KING, SHELLFISH SHUCKER AND PRIMARY RN AT BEDSIDE FOR MORNING ROUNDS. PLAN OF CARE DISCUSSED. WILL CONT TO MONITOR.
--- NOTE | 2019-02-01 11:10 | NUR ---
PATIENT C/O TIGHTENING WHERE THE NUNO CATHETER IS LOCATED. THE STAT LOCK REMOVED AND A NEW ONE PLACED. NUNO CARE PROVIDED AND STICKER APPLIED TO NUNO BAG. PATIENT TOLERATED WELL. WILL CONTINUE TO MONITOR.
--- NOTE | 2019-02-01 11:15 | NUR ---
ATTEMPTED TO TURN PATIENT TO PREVENT SKIN BREAKDOWN BUT PATIENT REFUSING. PATIENT EDUCATED ON WHY IT IS NECESSARY TO TURN AT LEAST Q 2 HRS TO PREVENT SKIN BREAKDOWN AND POTENTIAL INFECTION IN WOUND. PATIENT GESTURED UNDERSTANDING AND IS STILL REFUSING TO TURN TO THE SIDE. PATIENT LAYING SUPINE OFFLOADED WITH PILLOWS AND HOB ELEVATED AT LEAST 30 DEGREES. WILL CONTINUE TO MONITOR.
--- NOTE | 2019-02-01 11:49 | NUR ---
PATIENT WRITING SHE FEELS LIKE SHE IS "CHOKING". CURRENT 02 SAT 98%. PATIENT WROTE SHE WANTS SEDATION TURNED BACK ON. RESPIRATORY THERAPY CALLED TO PLACE PATIENT BACK ON FULL VENT SUPPORT. SEDATION WILL BE TURNED ON AFTER. WILL CONTINUE TO MONITOR.
--- NOTE | 2019-02-01 12:21 | NUR ---
PATIENT PLACED BACK ON VENT FULL SUPPORT AT 1150 BY RT NOMI. SEDATION RESTARTED WITH VERSED DRIP AT 0.5 MG/HR AND FENTANYL DRIP AT 0.5 MCG/KG/HR. WILL CONTINUE TO MONITOR.
--- NOTE | 2019-02-01 14:00 | NUR ---
PATIENT IS HIGH PRESSURING ON THE VENT AND RR IS 25-27 BREATHS/MIN. PATIENT SUCTIONED WITH SCANT AMOUNT OD SECRETIONS NOTED. SEDATION TITRATED UP TO VERSED AT 1 MG/HR AND FENTANYL DRIP AT 1 MCG/KG/HR. RSS-3. WILL CONTINUE TO MONITOR.
--- NOTE | 2019-02-01 14:16 | NUR ---
PATIENT CONTINUES TO PINTO THE VENT. RR REMAIN 25-30 BREATHS/MIN. VERSED DRIP TITRATED UP TO 2 MG/HR. FENTANYL DRIP REMAINS AT 1 MCG/KG/MIN. RSS-3. WILL CONTINUE TO MONITOR.
--- NOTE | 2019-02-01 15:52 | NUR ---
PATIENT SEDATED WITH RSS-5. VERSED DRIP TITRATED DOWN TO 1 MG/HR AND FENTANYL DRIP TITRATED DOWN TO 0.5 MCG/KG/HR. WILL CONTINUE TO MONITOR.
--- NOTE | 2019-02-01 19:30 | NUR ---
RECEIVED PT INTUBATED AND SEDATED ON VERSED GTT @ 2 MG/HR AND FENTANYL GTT @ 1 MCG/KG/HR. RSS=3. PT ABLE TO FOLLOW SIMPLE COMMANDS AND MAKE NEEDS KNOWN BY GESTURING AND WRITING ON CLIP BOARD. PUPILS 4MM BRISK RESPONSE TO LIGHT B/L. GAG REFLEX PRESENT WHEN SUCTIONED, NO FACIAL DROOP.PT INTUBATED TO VENT, INTACT. OGT INTACT AND PATENT, AIR AUSCULTATED OVER GASTRIC REGION FOR PLACEMENT. TRACHEA MIDLINE, NO DRAINAGE TO EENT.8.0 ETT, 24 LL. ORAL CARE PROVIDED PER VAP PROTOCOL. VENT SETTINGS AC MODE 40% FIO2, RATE 14, VT 450, PEEP 5. LUNG SOUNDS CLEAR TO BUL, DIMINISHED BASES. CHEST RISE/FALL SYMMETRIC, E/U BREATHING.S1/S2 SOUNDS HEARD, CHEST WALL STABLE, NO S/S OF CHEST PAIN.SKIN COLOR CONSISTENT WITH ETHNICITY, CAP REFILL <3 SEC, PULSES MODERATE TO BUE, WEAK TO BLE. TRACE EDEMA TO BUE/BLE. NS INFUSING @ 50 ML/HR.GEN WEAKNESS. NO CONTRACTURES/DEFORMITIES NOTED. PT ON TURN SCHEDULE Q2H. NO RESTRAINTS, WILL REASSESS NEED. ISOGEL MATTRESS INTACT. NO JOINT SWELLING OR TENDERNESS, INTACT.OGT INTACT INFUSING GLUCERNA @ 40 ML/HR, FWF 100 ML Q4H. GRV=20 ML. NO S/S OF N/V.ACTIVE BOWEL SOUNDS X4 QUADRANTS, ABD SOFT/ROUND. NO BM NOTED. F/C DRAINING TO GRAVITY YELLOW URINE, INTACT/SECURED. NO LABIAL EDEMA OR DISCHARGE NOTED.SKIN INTACT, WARM/DRY TO TOUCH, OPTIFOAM TO SACRUM, CDI. IV TO LFA, PORT PATENT, NO S/S OF INFILTRATION, DRESSING CDI. BED AT LOWEST SETTING, CALL LIGHT WITHIN REACH, HOB ELEVATED 30 DEGREES, WILL CONT TO MONITOR.
--- NOTE | 2019-02-01 21:58 | NUR ---
IV INITIATED TO RFA, 20 G, FLUSHED WITH 10 ML OF NS, + BLOOD RETURN, NO S/S OF INFILTRATION, DRESSING CDI.
[2019-02-02] VITALS (13 sets, daily range): BP systolic 108–148; BP diastolic 61–93
[2019-02-02 04:40] LABS: BASOPHIL % 0.4 % (0-2); PLATELET COUNT 166 x10^3mcL (130-400)
[2019-02-02 04:44] LABS: RED CELL DISTRIBUTION WIDTH 15.9 % (11.5-14.5)
[2019-02-02 04:53] LABS: CALCIUM 8.5 mg/dL (8.5-10.1); CARBON DIOXIDE 38.1 mmol/L (21-32); CHLORIDE SERUM 104 mmol/L (98-107); CREATININE SERUM 0.9 mg/dL (0.6-1.0); GFR1 > 60 mL/min; GLUCOSE SERUM 171 mg/dL (74-106); MAGNESIUM 2.2 mg/dL (1.8-2.4); POTASSIUM SERUM 4.9 mmol/L (3.5-5.1); SODIUM SERUM 142 mmol/L (136-145)
--- NOTE | 2019-02-02 05:00 | NUR ---
PT CLEANED AND PROVIDED FULL BED BATH, CHUCKS, GOWN, SHEETS CHANGED, NUNO CARE PROVIDED. PT TOLERATED WELL.
--- NOTE | 2019-02-02 05:30 | NUR ---
FENTANYL GTT TITRATED TO 0.5 MCG/KG/HR AND VERSED GTT TITRATED TO 1 MG/HR.
--- NOTE | 2019-02-02 07:00 | NUR ---
GAVE REPORT TO ASHLY FIGUEROA. UPDATES PROVIDED, QUESTIONS ANSWERED. ENDORSED CARE.
--- NOTE | 2019-02-02 07:01 | NUR ---
REPOT GIVEN FROM ASHLY RAMSEY ALL QUESTIONS ANSWERED.
--- NOTE | 2019-02-02 07:15 | NUR ---
PATIENT IN BED, BED IS TO THE LOWEST POSTION. PATIENT IS INTUBATED, 8.0 ETT, 24LL. PATIENT IS ON AC MODE AT A RATE OF 14, FIO2 OF 40%, TIDAL VOLUME OF 450 AND PEEP OF 5. PATIENT IS BREATHING ADEQUATELY AND THERE ARE NO SIGNS OF RESPIRATORY DISTRESS. PATIENT IS SEDATED, FENTANYL AT 0.5 MCG/KG/HR AND VERSED 1 MG/HR, RSS: 4. CONSTRUCTION COST ESTIMATOR IN PLACE, NSR. PATIENT IS ON TUBE FEEDINGS, GLUCERNA, 40 ML/HR WITH 100 FWF Q4. ABD ROUND AND SOFT. NUNO INTACT AND DRAINING VIA GRAVITY. URINE IS YELLOW IN COLOR WITH FAIR OUTPUT. PATIENT HAS BILATERAL SEQUENTIAL COMPRESSION DEVICES, HEELS OFF LOADED WITH PILLOWS, WILL CONTINUE TO MONITOR.
--- NOTE | 2019-02-02 07:30 | NUR ---
SEDATION OFF AT THIS TIME, PER CPAP TRIAL. PATIENT STABLE, WILL CONTINUE TO MONITOR.
--- NOTE | 2019-02-02 09:00 | NUR ---
DR. CAMACHO, DR. KING, HIGH SCALER AND PRIMARY RN AT BEDSIDE FOR MORNING ROUNDS. PLAN OF CARE DISCUSSED. WILL CONT TO MONITOR.
--- NOTE | 2019-02-02 09:23 | NUR ---
PATIENT ON CPAP AT THIS TIME.
--- NOTE | 2019-02-02 10:48 | NUR ---
PLACED PT BACK ON A/C MODE DUE TO ANXIETY.
--- NOTE | 2019-02-02 10:58 | NUR ---
PT ON AC MODE AT THIS TIME, RATE OF 14, FIO2 OF 40%, PEEP OF 5 AND TIDAL VOLUME OF 450. PATIENT STABLE WILL CONTINUE TO MONITOR.
--- NOTE | 2019-02-02 11:10 | NUR ---
PATIENT WRITES THAT THEY CAN NOT BREATHE, EDUCATION PROVIDED TO PATIENT THAT THE VENTILATOR IS ON AND HELPING THEM BREATHE. ASKED PATIENT IF THEY FEEL MORE COMFORTABLE WITH THE SEDATION. PATIENT NODDED TO TURNING BACK ON SEDATION. FENTANYL ON AND INFUSING AT 0.5 MCG/KG/ HR AND VERSED INFUSING AT 1 MG/HR. PATIENT STABLE, WILL CONTINUE TO MONITOR.
--- NOTE | 2019-02-02 12:09 | NUR ---
PATIENT PROVIDED WITH BEDBATH AND LINEN CHANGE.
--- NOTE | 2019-02-02 12:18 | NUR ---
SEDATION OFF AT THIS TIME, PER RT PATIENT WILL START CPAP.
--- NOTE | 2019-02-02 12:35 | NUR ---
RT AT BEDSIDE FOR EXTUBATION.
--- NOTE | 2019-02-02 12:36 | NUR ---
PATIENT EXTUBATED AT THIS TIME. PATIENT STABLE, VITAL SIGNS: 93% O2, RR: 21, BP: 146/97 MAP:117 HR:94. WILL CONTINUE TO MONITOR.
--- NOTE | 2019-02-02 14:29 | NUR ---
Follow-up Nutrition Assessment- Dx: Hypercarbic Respiratory Failure, PNA Labs: (02/02) BG 171H, BUN 42H Meds: D10%W, Humulin, Lactinex, Lasix, Pepcid, Senokot, Solu-medrol, Heparin Current Nutrition Support: Glucerna 1.2 at 50ml/hr, FWF 100cc q 4hr via OGT. Provides: 1440 kcal, 72 gm protein and 1566 ml total fluid daily. TF intake: (01/31) 921ml, (02/01) 801ml I and O: (01/31) 2041/1675 +366ml, (02/01) 2483/1020 +1463ml Residuals TF: (02/02) 15ml, 75ml Weights: (01/31) 125 kg, (02/01) 122 kg, (02/02) 117 kg Skin: Optifoam to sacrum. Calixto: 15 Edema: trace edema to BUE/BLE Last BM: +Flexiseal, elaine loose stool on 02/01. Pt was seen earlier today. Per RN notes, pt is on 40ml/hr EN rate as of 02/[address] notified RN on new order for EN rate of 50ml per MD orders, RN stated that she will slowly increase EN rate to new goal while observing pt tolerance and GRV's. RN declined any N/V. RD reviewed RN notes at 1425, and saw that pt has been extubated and NGT was removed. ICU staff awaiting MD order to provide food and water orally per Peggy's report. Estimated Nutritional Needs based on: actual body weight: 117 kg Energy: 2781-6279 kcal/day (11-14 kcal/kg for obesity) Protein: 82-95 dm/day (1.2-1.4 g,/kg of Adj IBW 68 kg ) Fluid: per doctor Nutrition Diagnosis 1. Inadequate EN infusion r/t low goal rate of EN support AEB EN intake meeting <75% of estimated needs. (*not applicable) Intervention 1. If/when medically appropriate, recommend full liquid diet then Soft CCHO diet. 2. Consider adding ONS if PO intake is <75% of meals. Monitor/Evaluate Previous goal: TF intake at least 75% of estimated needs (met) Goal: PO intake at least 75% of estimated needs Monitor: PO intake, Labs, GI function, weights F/U in 2-3 days as high risk (02/04-02/05)
--- NOTE | 2019-02-02 14:29 | NUR ---
1. If/when medically appropriate, recommend full liquid diet then Soft CCHO diet. 2. Consider adding ONS if PO intake is <75% of meals.
--- NOTE | 2019-02-02 14:49 | NUR ---
BEDSIDE SWALLOW SCREEN DONE. PATIENT TOLERATED WELL. APPLE SAUCE AND ICE CHIPS GIVEN. NO TROUBLE SWALLOWING. PATIENT STABLE, WILL CONTINUE TO MONITOR.
--- NOTE | 2019-02-02 19:04 | NUR ---
REPORT GIVEN TO ASHLY GRIMM. ALL QUESTIONS ANSWERED.
--- NOTE | 2019-02-02 19:30 | NUR ---
REC'D REPORT FROM HENRY LIMON TO ASSUME CARE. PT IS A/0 X4, VERBALLY RESPONSIVE. SPEECH HOARSE. ABLE TO FOLLOW COMMANDS. PERRLA NOTED. NO ACUTE DISTRESS NOTED. S/P EXTUBATION TODAY @ 1236. NO SOB NOTED, RESPS E/U ON HI-FLOW 20 LPM, 40% FIO2. CHEST RISE EQUAL AND SYMMETRICAL. LUNG SOUNDS DIM LEFT SIDE, EXP WHEEZES RIGHT SIDE. ABD OBESE, SOFT, NONTENDER TO TOUCH. BOWEL SOUNDS ACTIVE. DENIES ANY N/V/D. SKIN WARM DRY TO TOUCH. PULSES [place] X4. NO EDEMA NOTED. CAP REFILL < 3 SECS. IV TO RFA G20 AND LFA G20 INTACT AND PATENT. NS INFUSING @ 50 ML/HR. F/C INTACT AND DRAINING VIA GRAVITY YELLOW URINE. DENIES ANY URINARY SYMPTOMS. ABLE TO REPOSITION WITH ASSIST. CALL LIGHT WITHIN REACH. WILL CONTINUE TO MONITOR.
--- NOTE | 2019-02-02 22:00 | NUR ---
RT AT BEDSIDE PROVIDING BREATHING TX.
--- NOTE | 2019-02-02 22:02 | NUR ---
JEAN CLAUDE RT AT BEDSIDE PLACED PT ON BIPAP 12/6, RATE 12, FIO2 40%.
--- NOTE | 2019-02-02 23:15 | NUR ---
RECEIVED REPORT FROM ASHLY GRIMM. RECIEVED PT AOX4 ABLE TO RESPOND TO COMMANDS, MAKE NEEDS KNOWN. SPEECH RASPY/CLEAR. PUPILS 4MM BRISK RESPONSE TO LIGHT B/L. NO FACIAL DROOP.TRACHEA MIDLINE, NO DRAINAGE TO EENT. NO EENT COMPLAINTS.LUNG SOUNDS CTA BUL, DIMINISHED BASES. CHEST RISE/FALL SYMMETRIC, E/U BREATHING, NO ACUTE RESP DISTRESS, DENIES SOB. PT ON BIPAP 12/6 FIO2 40%.S1/S2 SOUNDS HEARD, CHEST WALL STABLE, NO S/S OR REPORT OF CHEST PAIN.SKIN COLOR CONSISTENT WITH ETHNICITY, CAP REFILL <3 SEC, PULSES MODERATE TO BUE, WEAK BUT PALPABLE TO BLE. NS GTT INFUSING @ 50 ML/HR.GEN WEAKNESS, PT ON TURN SCHED Q2H. NO CONTRACTURES/DEFORMITIES, NO JOINT SWELLING/TENDERNESS, INTACT.NO S/S OF N/V.ACTIVE BOWEL SOUNDS X4, ABD SOFT/ROUND, OBESE. NO BM NOTED.F/C DRAINING TO GRAVITY, YELLOW URINE, INTACT. NO URINARY COMPLAINTS, NO LABIAL EDEMA/DISCHARGE NOTED.SKIN INTACT, WARM/DRY TO TOUCH. IV TO LFA, RFA, PORTS PATENT, NO S/S OF INFILTRATION, DRESSING CDI. OPTIFOAM TO SACRUM, CDI. BED AT LOWEST SETTING, CALL LIGHT WITHIN REACH HOB ELEVATED, WILL CONT TO MONITOR.
--- NOTE | 2019-02-03 | NUR ---
PT REPORTING "I DONT LIKE THIS MACHINE ON MY FACE ANYMORE, I DONT FEEL COMFORTABLE WITH IT ON". EDUCATED PT ON NEED FOR BIPAP AND OXYGEN SATURATION. PT VERBALIZES UNDERSTANDING BUT WANTS THE HIFLOW MACHINE ON. RT JEAN CLAUDE PAGED AND AT BEDSIDE TO PLACE PT ON HIGHFLOW CANNULA AT 40%. PT NOW SATURATING @ 93%. WILL CONT TO MONITOR.
[2019-02-03 03:04] VITALS: BP 146/60
--- NOTE | 2019-02-03 03:15 | NUR ---
PT REQUESTING FOR BED BATH AT THIS TIME. FULL BED BATH PROVIDED TO PATIENT, GOWN, CHUCKS, LINEN AND SHEETS CHANGED AT THIS TIME. NUNO CARE PROVIDED TO PATIENT WITH HENRY LIMON WITH ASSISTANCE. BED PLACED AT LOWEST SETTING, CALL LIGHT WITHIN REACH, SIDE RAILS UP X4 AND HOB ELEVATED 45 DEGREES PER PT COMFORT AND REQUEST. WILL CONT TO MONITOR.
--- NOTE | 2019-02-03 04:28 | NUR ---
PT HAD ANOTHER LOOSE LIGHT BROWN MODERATE BM. GOOD PERICARE PROVIDED TO PT AND CHUCKS CHANGED AT THIS TIME.
[2019-02-03 05:26] LABS: BASOPHIL % 0.1 % (0-2); PLATELET COUNT 178 x10^3mcL (130-400)
[2019-02-03 05:36] LABS: RED CELL DISTRIBUTION WIDTH 16.8 % (11.5-14.5)
[2019-02-03 05:42] LABS: CALCIUM 8.9 mg/dL (8.5-10.1); CARBON DIOXIDE 38.8 mmol/L (21-32); CHLORIDE SERUM 98 mmol/L (98-107); CREATININE SERUM 0.8 mg/dL (0.6-1.0); GFR1 > 60 mL/min; GLUCOSE SERUM 138 mg/dL (74-106); MAGNESIUM 1.8 mg/dL (1.8-2.4); PHOSPHOROUS 2.6 mg/dL (2.5-4.9); POTASSIUM SERUM 4.1 mmol/L (3.5-5.1); SODIUM SERUM 138 mmol/L (136-145)
--- NOTE | 2019-02-03 06:10 | NUR ---
PT HAD ANOTHER PASTY/SOFT LIGHT BROWN SMALL BM. GOOD PERICARE PROVIDED TO PT AND CHUCKS CHANGED AT THIS TIME. OPTIFOAM CHANGED AT THIS TIME.
--- NOTE | 2019-02-03 06:29 | NUR ---
DR. KING AT BEDSIDE FOR ASSESSMENT, SPEAKING WITH PT ON POC. UPDATES PROVIDED TO DR. KING ON PT'S STATUS OVER NIGHT, ANSWERED QUESTIONS.
--- NOTE | 2019-02-03 07:10 | NUR ---
GAVE REPORT TO ASHLY ROWAN. UPDATES GIVEN, QUESTIONS ANSWERED. ENDORSED CARE.
[2019-02-03 07:40] VITALS: BP 141/85
--- NOTE | 2019-02-03 07:40 | NUR ---
THE PATIENT AWAKE AND ORIENTED TO PERSON, PLACE AND TIME. PATIENT DENIES SHORTNESS OF BREATH, NAUSEA/VOMITING OR PAIN AT THIS TIME. PATIENT IS ON HIGH FLOW AT 40% FIO2 AND 20LPM. PATIENT HAS EPISODES OF NON-PRODUCTIVE COUGH. ENCOURAGING THE PAITENT TO USE I.S. DEVICE TO IMPROVE HER LUNGS. IVF NS VIA IV SITE AT [facility]. ANOTHER IV SITE TO RFA. TELE # 1 READS SINUS RHYTHMS. NUNO CATH TO GRAVITY DRAINING YELLOW URINE. CALL LIGHT WITHIN REACH. SIDE RAILS UP X3. THE PAIENT IS ON AIR MATTRESS. BED IS AT LOWEST POSITION.
--- NOTE | 2019-02-03 07:50 | NUR ---
DR ORELLANA AT BEDSIDE TO ASSESS PATIENT. PATIENT PROVIDED UPDATE BEDSIDE WITH POC DISCUSSED. HI-FLOW ADJUSTED TO 18LPM AND 02 AT 35%.
--- NOTE | 2019-02-03 08:00 | NUR ---
PATIENT PASSED MODERATE AMOUNT OF LOOSE STOOL. PATIENT PROVIDED BED BATH WITH ALL LINENS CHANGED. OPTIFOAM TO COCCYX/SACRAL AREA CHANGED. NO SKIN BREAKDOWN NOTED.
--- NOTE | 2019-02-03 08:31 | NUR ---
CAMILA CANCHOLA AT BEDSIDE TO DRAW ABG.
[2019-02-03 11:13] VITALS: BP 151/93
--- NOTE | 2019-02-03 13:22 | NUR ---
HFNC TITRATED TO 15LPM, 35% FIO2. SPO2 OF 92%. NO RESP DISTRESS NOTED. RN HARPAL MADE AWARE. WILL CONT TO MONITOR
--- NOTE | 2019-02-03 13:23 | NUR ---
RT CAMILA ADJUSTED THE HIGH FLOW SETTING: FROM 18LPM DOWN TO 15LPM.
[2019-02-03 15:30] VITALS: BP 143/80
--- NOTE | 2019-02-03 15:30 | NUR ---
PHYSICAL THERAPIST IS AT BEDSIDE FOR PT.
--- NOTE | 2019-02-03 18:48 | NUR ---
THE PATIENT AWAKE AND ON HIGH-FLOW THROUGHOUT THE SHIFT. HIGH FLOW SETTING: FIO2 35%, AND 15LPM. PATIENT DENIES SHORTNESS OF BREATH. PATIENT HAS BEEN INSTRUCTED SEVERAL TIMES TO USE I.S. DEVICE TO IMPROVE HER LUNGS. PATIENT VERBALIZED UNDERSTANDING.
--- NOTE | 2019-02-03 19:11 | NUR ---
RECEIVED REPORT FROM TAYLOR LIMON. WILL CONTINUE TREATMENT AND CARE.
[2019-02-03 19:25] VITALS: BP 145/95
--- NOTE | 2019-02-03 19:47 | NUR ---
RT MALAVE AT BEDSIDE ASSESSING PT AND GIVING BREATHING TREATMENT.
--- NOTE | 2019-02-03 19:50 | NUR ---
GAVE REPORT TO ABIODUN LIMON TO PT TRANSFER UPSTAIRS. ALL QUESTIONS AND CONCERNS ADDRESSED.
[2019-02-03 23:13] VITALS: BP 152/110
--- NOTE | 2019-02-04 00:15 | NUR ---
RECEIVED REPORT FROM CORNELIA LIMON FROM ICU. PT IS AA&O X4 AND ABLE TO FOLLOW COMMANDS. PT CURRENTLY DENIES CHEST PAIN OR SHORTNESS OF BREATH ON HIGH FLOW O2 35 PERCENT. THERE ARE NO USE OF ACCESSORY MUSCLES OR LABORED BREATHING ON ASSESSMENT. PT MEMORY IS INTACT. VERBAL RESPONSE IS APPROPRIATE. SKIN IS INTACT. BLE EDEMA NOTED +2. PULSES PALPABLE MODERATE BRACHIAL WEAK PEDAL. PT HAS GENERALIZED WEAKNESS. LUNG SOUNDS ARE DIMINISHED IN THE BILATERAL BASES ACCOMPANIED WITH A NONPRODUCTIVE COUGH. BOWEL SOUNDS ARE ACTIVE X4. S1 AND S2 HEARD UPON AUSCULTATION. PT IS ON TELE WITH SINUS RHYTHM BUNDLE BRANCH HR: 79. PT DENIES PAIN AT THIS TIME. NUNO IN PLACE AND DRAINING TO GRAVITY. YELLOW URINE 200 ML AT THIS TIME. PT TOLERATING WELL. PT DENIES PAIN AT THIS TIME. VITAL SIGNS: 157/88 (111) HR: 79 O2: 91% TEMP: 98.3 RR: 16 PAIN: 0/10 (VERBAL) LFA IV AND RFA IV CLEAN DRY AND INTACT. SAFETY MEASURES ARE IN PLACE. CALL LIGHT IS WITHIN REACH. WILL CONTINUE TO MONITOR.
[2019-02-04 00:40] VITALS: BP 157/88
--- NOTE | 2019-02-04 02:05 | NUR ---
PT RESTING IN BED. NO SIGNS OF DISTRESS. BREATHING IS UNLABORED. NO USE OF ACCESSORY MUSCLES OR LABORED BREATHING ON ASSESSMENT. WILL CONTINUE TO MONITOR.
--- NOTE | 2019-02-04 05:12 | NUR ---
PT SLEPT IN SHORT INTERVALS THROUGHOUT THE REMAINDER OF THE SHIFT. NO SIGNIFICANT CHANGES NOTED. NO ACUTE DISTRESS NOTED THROUGHOUT THE SHIFT. NO SIGNIFICANT CHANGES NOTE. PT DENIES CHEST PAIN OR SHORTNESS OF BREATH AT THIS TIME. NO USE OF ACCESSORY MUSCLES OR LABORED BREATHING ON ASSESMENT. PT TOLERATED ALL INTERVENTIONS WELL. WILL ENDORSE TO DAY SHIFT RN.
[2019-02-04 05:59] VITALS: BP 148/87
[2019-02-04 06:03] LABS: PLATELET COUNT 196 x10^3mcL (130-400)
[2019-02-04 06:36] LABS: BASOPHIL % 0 % (0-2); RED CELL DISTRIBUTION WIDTH 17.1 % (11.5-14.5)
--- NOTE | 2019-02-04 07:30 | NUR ---
RECEIVED PT FROM PROP MAKER. ASSESSED AND DOCUMENTED. DENIES ANY PAIN. PT IS SLEEPING THIS TIME, EASILY AROUSABLE. SAFTEY PRECAUTIONS ARE IN PLACE. WILL MONITOR.
[2019-02-04 08:03] VITALS: BP 163/90
[2019-02-04 08:24] LABS: CALCIUM 9.3 mg/dL (8.5-10.1); CARBON DIOXIDE 36.4 mmol/L (21-32); CHLORIDE SERUM 101 mmol/L (98-107); CREATININE SERUM 0.8 mg/dL (0.6-1.0); GFR1 > 60 mL/min; GLUCOSE SERUM 141 mg/dL (74-106); MAGNESIUM 1.8 mg/dL (1.8-2.4); PHOSPHOROUS 3.1 mg/dL (2.5-4.9); POTASSIUM SERUM 3.9 mmol/L (3.5-5.1); SODIUM SERUM 143 mmol/L (136-145)
--- NOTE | 2019-02-04 12:00 | NUR ---
PT RESTING IN BED COMFORYABLY, ASSISTING PT TO USE BSC. PT CAN DO THE ASSIST. STABLE. NO SOB NOTED.
[2019-02-04 12:59] VITALS: BP 142/82
--- NOTE | 2019-02-04 14:00 | NUR ---
RECIVED PT RESTING IN BED WITH NO C/O PAIN, DISTRESS, OR SOB. PT A/O X4 WITH NO C/O GARCIA OR DIZZINESS. PT CONNECTED TO TELE #27. LUNGS DIMINISHED. PT ON HIGH FLOW O2 35% VIA NC. NUNO CATHETER IN PLACE AND DRAINING YELLOW URINE. NS RUNNING AT 50ML/HR IN LFA. IV IN LFA AND RFA INTACT AND PATENT. NO REDNESS OR INFLAMMATION NOTED. BLE EDEMA NOTED. PT NON AMBULATORY WITH TURNING Q2 HOUR AND PRN. SAFETY PRECAUTIONS IN PLACE. CALL LIGHT WITHIN REACH. WILL MONITOR.
--- NOTE | 2019-02-04 14:09 | NUR ---
GAVE REPORT TO NURSE FISHER. PT IS STABLE. DENIES ANY PAIN. NO SOB NOTED.
--- NOTE | 2019-02-04 14:27 | NUR ---
STARTED PT 1200 ZOSYN AT THIS TIME DUE TO PHARMACY DELAY IN MEDICATION DELIVERY. CHARGE AWARE.
--- NOTE | 2019-02-04 16:00 | NUR ---
PT SITTING UP IN BED, DENIES ANY PAIN OR SOB. TOLERATING ALL CARES WELL. SAFETY PRECAUTIONS IN PLACE. CALL LIGHT WITHIN REACH, WILL MONITOR
[2019-02-04 16:29] VITALS: BP 136/70
--- NOTE | 2019-02-04 19:22 | NUR ---
ENDORSED PT CARE OVER TO NIGHT NURSE. VS WNL, DENIES ANY PAIN OR SOB AT THIS TIME. BOTH IV'S INTACT AND PATENT WITH NO REDNESS OR INFLAMMATION. DENIES CP OR PRESSURE. NUNO INTACT AND DRAINING. TOLERATED ALL CARES WELL. SAFETY PRECAUTIONS IN PLACE. CALL LIGHT WITHIN REACH. PT STABLE.
--- NOTE | 2019-02-04 19:25 | NUR ---
RECEIVED PT FROM DAY SHIFT RN. PT IS AA&O X4 AND ABLE TO FOLLOW COMMANDS. DENIES SOB OR CHEST PAIN AT THIS TIME. THERE ARE NO USE OF ACCESSORY MUSCLES OR LABORED BREATHING ON ASSESSMENT. PT TOLERATING HIGH FLOW O2 AT 35%. TELE MONITOR IN PLACE. THERE IS A LFA IV AND RFA IV THAT IS CLEAN DRY AND INTACT AT THIS TIME. PT DENIES PAIN AT THIS TIME. MINOR COMPLAINTS OF SOAR THROAT. OFFERED HOT TEA. SAFETY MEASURES IN PLACE. CALL LIGHT IS WITHIN REACH. WILL CONTINUE TO MONITOR.
[2019-02-04 20:38] VITALS: BP 141/92; BP 147/76
--- NOTE | 2019-02-04 23:00 | NUR ---
DC'D LFA IV. PT TOLERATED WELL
[2019-02-05] VITALS (7 sets, daily range): BP systolic 129–175; BP diastolic 75–93
--- NOTE | 2019-02-05 05:13 | NUR ---
PT SLEPT IN INTERVALS THROUGHOUT THE NIGHT. NO COMPLAINTS OF SHORTNESS OF BREATH OR CHEST PAIN. PT CURRENTLY RESTING IN BED. NO USE OF ACCESSORY MUSCLES OR LABORED BREATHING NOTED. TOLERATING HIGH FLOW O2 WELL. SAFETY MEASURES ARE IN PLACE. CALL LIGHT IS WITHIN REACH. WILL ENDORSE TO DAY SHIFT RN.
--- NOTE | 2019-02-05 06:28 | NUR ---
ELOY CAUSEY REFUSED X RAY. SPOKE WITH PT AND SHE IS WILLING TO DO THE X RAY. PREFORM PLATE MAKER NOTIFIED.
[2019-02-05 06:56] LABS: CALCIUM 9.2 mg/dL (8.5-10.1); CARBON DIOXIDE 36.6 mmol/L (21-32); CHLORIDE SERUM 99 mmol/L (98-107); CREATININE SERUM 0.8 mg/dL (0.6-1.0); GFR1 > 60 mL/min; GLUCOSE SERUM 146 mg/dL (74-106); MAGNESIUM 1.8 mg/dL (1.8-2.4); PHOSPHOROUS 3.2 mg/dL (2.5-4.9); POTASSIUM SERUM 3.6 mmol/L (3.5-5.1); SODIUM SERUM 140 mmol/L (136-145)
--- NOTE | 2019-02-05 07:15 | NUR ---
RECEIVED PT. IN BED A/A/O X3. NO SOB, NO N/V NOTED. PT. DENIES ANY PAIN AT THIS TIME. PT. IS ON HI FLOW OXYGEN AT 15L VIA VAPOTHERM MACHINE. NS RUNNING AT 10 CC/HR VIA IV SITE AT R FA. F/C DRAINING YELLOW URINE. BED IN LOW POS., CALL LIGHT WITHIN REACH. SIDE RAILS UP X3.
[2019-02-05 07:50] LABS: PLATELET COUNT 209 x10^3mcL (130-400)
[2019-02-05 07:52] LABS: BASOPHIL % 0 % (0-2); RED CELL DISTRIBUTION WIDTH 17.7 % (11.5-14.5)
--- NOTE | 2019-02-05 09:00 | NUR ---
EXPLAINED TO PT. THE REASONS WHY PHOTOGRAPHS OF ANY CHANGE IN SKIN INTEGRITY NEED TO BE TAKEN PER HOSPITAL POLICY. ALSO EXPLAINED TO PT. THAT ERYTHEMA WAS NOTED TO HER PERINEUM, MONCHO. GROINS, AND MONCHO. INNER THIGHS AND THAT PHOTOGRAPHS OF THESE AREAS NEED TO BE TAKEN. PT. STATED " I DON'T WANT ANY PICTURE TAKEN ON THESE PRIVATE SPOTS. PLEASE DON'T DO THIS." PT. USED HER HANDS TO COVER HER PERINEAL AREA.
--- NOTE | 2019-02-05 12:51 | NUR ---
Follow-up Nutrition Assessment- Dx: hypercarbic respiratory failure, PNA Labs: (02/05) Na 140, K 3.6, Glu 146, BUN 25 H, Cr 0.8, H/H 12./37 Meds: D10%, humulin R, lactinex, Lasix, Norvasc, Pepcid, senokot, sodium 0.9%, Tylenol, solu-medrol, Zofran, zosyn Diet: puree, NTL PO Intakes: (02/04) B: 50%, L: 50%; (02/03): B: 50%, L: 50%, D: 25%; (02/02); (02/02) D: 100%. Overall average 54% x 6 meals. Weights: (02/03) 115.7 kg, (02/02) 117 kg; wt fluct anticipated d/t Pt admitted with edema to BUE/BLE and Pt on lasix. Skin: optifoam to sacrum Calixto: 16 Edema: trace edema to BUE/BLE Last BM: 02/04/19 Pt extubated and started on puree NTL diet at dinner on 02/02/19. RDN attempted to visit with Pt. Pt was too sleepy to speak with RDN. Per ACUTE CARE NURSE PRACTITIONER documentation, Pt continues on high flow O2 and titrated to keep O2 sat > 90%, respiratory treatment continues, PT evaluating pending. RDN spoke with MOLD CLOSER and RN, both report that Pt ate 50% at breakfast this morning, No GI s/s, may benefit from ONS, Pt agreeable to try ONS. Estimated Nutritional Needs unchanged from prior assessment: 116 kg; re-estimated d/t extubation and wt change. Energy: 7180-7724 kcal/d (11-14 kcal/kg for obesity) Protein: 82-95 gm/d (1.2-1.4 gm/kg - adj BW 68 kg) Fluid: 9141-0821 mL/d (1 mL/kcal) or per MD Nutrition Diagnosis 1. Inadequate EN infusion related to low goal rate of EN support as evidenced by EN intake meeting < 75% of estimated needs. (resolved; Pt extubated, no longer on EN) 2. Inadequate oral intake related to varied PO intakes as evidenced by Pt with average PO intakes of 54% x 6 meals. (New) Intervention/RDN Recommendation(s): 1. Continue on puree NTL diet as tolerated. 2. Consider adding Ensure Enlive to provide additional 1050 kcal and 60 gm protein to help met estimated kcal and protein needs. Monitor/Evaluate Previous Goal: PO intakes at least 75% estimated needs. Goal: Intake via PO intakes to meet at least 75% of estimated needs with acceptable tolerance within 2-3 days. Monitor: PO intakes tolerance, Labs, GI function, Skin integrity, Weights. F/U in 2-3 days as high risk (02/07-)
--- NOTE | 2019-02-05 13:16 | NUR ---
B/P= 172/95, P= 90. ALETHA TREVINO WAS MADE AWARE OF THE ABOVE B/P. ORDER FOR PO PRN PO CLONIDINE RECEIVED.
--- NOTE | 2019-02-05 15:20 | NUR ---
B/P RECHECKED. B/P= 152/81, P= 88.
--- NOTE | 2019-02-05 16:42 | NUR ---
REMAINS IN STABLE CONDITION AT THIS TIME. F/C CARE GIVEN. WILL CONTINUE TO MONITOR.
--- NOTE | 2019-02-05 19:00 | NUR ---
RECEIVED PT FROM DAY SHIFT RN. PT IS AA&O X 4 AND FOLLOW SIMPLE COMMANDS. PT CURRENTLY RESTING IN BED AND DENIES CHEST PAIN OR SHORTNESS OF BREATH ON HIGH FLOW O2. PT TOLERATING WELL. THERE ARE NO USE OF ACCESSORY MUSCLES OR LABORED BREATHING ON ASSESSMENT. THERE IS A RFA IV THAT IS CLEAN DRY AND INTACT AT THIS TIME. NUNO CATHETER IN PLACE AND DRAINING TO GRAVITY. YELLOW URINE. PT TOLERATING WELL. SAFETY MEASURES ARE IN PLACE. TELE MONITOR IN PLACE. CALL LIGHT WITHIN REACH. WILL CONTINUE TO MONITOR.
--- NOTE | 2019-02-05 21:12 | NUR ---
PT CURRENTLY TOLERATING HIGH FLOW O2 WELL. FIO2: 35 10L
[2019-02-06 04:52] VITALS: BP 169/93
--- NOTE | 2019-02-06 05:08 | NUR ---
PT SLEPT THROUGHOUT THE NIGHT. DENIES CHEST PAIN OR SHORTNESS OF BREATH THROUGHOUT THE SHIFT. NO SIGNIFICANT CHANGES NOTED. PT TOLERATING HIGH FLOW O2 AT THIS TIME. SAFETY MEASURES IN PLACE. CALL LIGHT WITHIN REACH. WILL ENDORSE TO DAY SHIFT RN.
[2019-02-06 06:18] LABS: PLATELET COUNT 234 x10^3mcL (130-400)
[2019-02-06 06:32] LABS: CALCIUM 9.2 mg/dL (8.5-10.1); CARBON DIOXIDE 33.2 mmol/L (21-32); CHLORIDE SERUM 101 mmol/L (98-107); CREATININE SERUM 0.8 mg/dL (0.6-1.0); GFR1 > 60 mL/min; GLUCOSE SERUM 154 mg/dL (74-106); POTASSIUM SERUM 3.9 mmol/L (3.5-5.1); SODIUM SERUM 142 mmol/L (136-145)
[2019-02-06 06:34] LABS: RED CELL DISTRIBUTION WIDTH 17.5 % (11.5-14.5)
--- NOTE | 2019-02-06 07:10 | NUR ---
RECEIVED PT FROM ELECTRONIC INDUCTION HARDENER ASHLY. Daniel/BRENNA. TELE#15. RESPIRATIONS EQUAL AND UNLABORED ON 10 L HIGH FLOW. NO ACUTE RESP DISTRESS NOTED. PT DENIES ANY PAIN AT THIS TIME. PT STATES "I FEEL BETTER AND I HAVE MORE ENERGY THAN BEFORE" IV TO LFA PATENT AND INFUSING. NO REDNESS OR SWELLING NOTED. WILL CONTINUE TO MONITOR. CALL LIGHT IN REACH. BED IN LOWEST POSITION.
--- NOTE | 2019-02-06 08:50 | NUR ---
PT SITTING UP AT BEDSIDE. NO ACUTE RESP DISTRESS NOTED ON 10L HIGH FLOW. PT DENIES ANY PAIN AT THIS TIME. GIVEN PO MEDS. TOLERATED WELL. IV TO LFA FLUSHED WELL. NO REDNESS OR SWELLING NOTED. WILL CONTINUE TO MONITOR. CALL LIGHT IN REACH. BED IN LOWEST POSITION.
[2019-02-06 09:36] VITALS: BP 142/82
--- NOTE | 2019-02-06 11:13 | NUR ---
PT SITTING UP IN BED. PT HAS HIGH FLOW OFF. ENCOURAGED PT TO KEEP HIGH FLOW ON AT ALL TIMES TO PREVENT BEING SOB. PT VERBALIZED UNDERSTANDING. EMPTIED 1650 OF CLEAR YELLOW URINE FROM NUNO CATHETER. WILL CONTINUE TO MONITOR. CALL LIGHT IN REACH. BED IN LOWEST POSITION.
--- NOTE | 2019-02-06 11:42 | NUR ---
PT SITTING UP IN BED. NO ACUTE RESP DISTRESS NOTED ON 10 L HIGH FLOW O2. BLOOD SUGAR WAS CHECKED WAS 144. NO COVERAGE NEEDED. GIVEN PO MEDS. TOLERATED WELL. IV ANTIBIOTICS INFUSING ORDERED TO RFA. NO REDNESS OR SWELLING NOTED. WILL CONTINUE TO MONITOR. CALL LIGHT IN REACH. BED IN LOWEST POSITION.
[2019-02-06 12:42] VITALS: BP 148/92
[2019-02-06 14:08] LABS: MONOCYTE 5 % (0-7); SEGMENTED NEUTROPHILS 89 % (37-75)
[2019-02-06 14:09] LABS: BAND NEUTROPHIL 1 % (0-10); BASOPHIL 0 % (0-2)
[2019-02-06 14:10] LABS: PLATELET MORPHOLOGY PLATELETS NORMAL; rbc morphology (normal/abnorm) ABNORMAL (NORMAL)
[2019-02-06 16:59] VITALS: BP 164/93
--- NOTE | 2019-02-06 17:06 | NUR ---
PT SITTING UP IN BED. NO ACUTE RESP DISTRESS NOTED ON 10 L HIGH FLOW O2. RESPIRATORY THERAPIST AT BEDSIDE. PROVIDING BREATHING TREATMENTS. GIVEN PO MEDS. TOLERATED WELL. BLOOD SUGAR CHECKED WAS 186. GIVEN 3 UNITS OF REGULAR INSULING. IV ANTIBIOTICS INFUSING ORDERED. WILL CONTINUE TO MONITOR. CALL LIGHT IN REACH. BED IN LOWEST POSITION/
--- NOTE | 2019-02-06 18:41 | NUR ---
PT IN BED RESTING. RESPIRATIONS EQUAL AND UNLABORED ON 10 L HIGH FLOW O2. TELE# 15.PT DENIES SOB AT THIS TIME. PT DENIES ANY PAIN AT THIS TIME. IV PATENT AND INFUSING TO LFA. NO REDNESS OR SWELLING NOTED. NUNO CATHETER SECURED TO THIGH DRAINING CLEAR YELLOW URINE. WILL ENDORSE TO MOTOR VEHICLE EMISSIONS INSPECTOR RN. CALL LIGHT IN REACH. BED IN LOWEST POSITION.
[2019-02-06 19:25] VITALS: BP 129/75
--- NOTE | 2019-02-06 19:25 | NUR ---
RECEIVED PT AWAKE ALERT AND VERBALLY RESPONSIVE.BREATHING EASY AND NON-LABORED.DIMINISHED BREATHSOUNDS.ON HIGH FLOW 10L/35% FIO2.O2 SAT @ 95%.NO COUGHING/CONGESTION NOTED AT THIS TIME.ON PUREED DIET AND TOLERATING WELL,ASKING FOR SNACKS LATER TONIGHT.DENIES CHESTPAIN.BP 129/75 MMHG,HR 71.F/C TO YELLOW COLORED URINE.REDNESS TO BUTTOCKS WITH OPTIFOAM DRESSING INTACT.REDNESS TO ABDOMINAL FOLDS.WILL CONTINUE TO MONITOR.
--- NOTE | 2019-02-07 04:55 | NUR ---
PT SLEPT WELL.BREATHING EASY AND NON-LABORED.TOLERATED HIGH FLOW WELL.NO COUGHING/CONGESTION NOTED.NO ASE NOTED FROM ZOSYN IV ATB.ALL NEEDS ANTICIPATED AND MET.WILL CONTINUE TO MONITOR.
[2019-02-07 06:10] VITALS: BP 165/99
[2019-02-07 06:14] LABS: PLATELET COUNT 221 x10^3mcL (130-400)
--- NOTE | 2019-02-07 06:19 | NUR ---
BP THIS AM @ 165/99 MMHG,HR 66.DENIES CHESTPAIN AT THIS TIME.CATAPRES 0.1 MG PO ADMINISTERED.WILL CONTINUE TO MONITOR.
[2019-02-07 06:20] LABS: CALCIUM 9.1 mg/dL (8.5-10.1); CARBON DIOXIDE 32.3 mmol/L (21-32); CHLORIDE SERUM 101 mmol/L (98-107); CREATININE SERUM 0.8 mg/dL (0.6-1.0); GFR1 > 60 mL/min; GLUCOSE SERUM 167 mg/dL (74-106); SODIUM SERUM 141 mmol/L (136-145)
[2019-02-07 06:38] LABS: RED CELL DISTRIBUTION WIDTH 17.6 % (11.5-14.5)
[2019-02-07 06:50] VITALS: BP 163/95
--- NOTE | 2019-02-07 06:51 | NUR ---
LATEST BP RECHECKED @ 163/95 MMHG,HR 68.CONTINUES TO DENIES CHESTPAIN AT THIS TIME.WILL ENDORSE TO AM NURSE.
--- NOTE | 2019-02-07 07:25 | NUR ---
RECIEVED PT FROM QUALITY CONTROL SUPERVISOR. PT AWAKE, ALERT. A/OX4. PT ON HIGH FLOW O2 AT 10L WITH NO RESP DISTRESS NOTED. LUNG SOUNDS DIMINISHED. PT REPORTS BREATHING IS "MUCH BETTER TODAY". IV ACCESS LFA INFUSING NS AT 10ML/HR. PERIPHERAL PULSES PALPABLE, TRACE EDEMA NOTED TO BLE. PT REPORTS HAVING BM YESTERDAY FORMED. PT HAS NUNO CATH WITH CLEAR YELLOW URINE DRAINING. PT DENIES PAIN AT THIS TIME. DENIES CHEST PAIN OR HEADACHE. PT ON TELE #15. SAFETY MEASURES IN PLACE, BED LOW AND LOCKED. CALL LIGHT WITHIN REACH.
--- NOTE | 2019-02-07 09:10 | NUR ---
DUE MEDS ADMINISTERED (SEE EMAR). PT TOLERATED WELL. NO ACUTE DISTRESS OR DISCOMFORT NOTED AT THIS TIME. PT REPORTS FEELING MUCH BETTER.
[2019-02-07 10:02] VITALS: BP 140/73
--- NOTE | 2019-02-07 12:23 | NUR ---
PT RESTING COMFORTABLY. PRODUCTIVE COUGH NOTED WITH YELLOW SPUTUM. PT REPORTS NO DISTRESS OR DISCOMFORT AT THIS TIME.
[2019-02-07 12:32] LABS: BAND NEUTROPHIL 3 % (0-10); BASOPHIL 0 % (0-2); MONOCYTE 5 % (0-7); SEGMENTED NEUTROPHILS 86 % (37-75)
[2019-02-07 12:33] LABS: PLATELET MORPHOLOGY PLATELETS DECREASED; rbc morphology (normal/abnorm) ABNORMAL (NORMAL)
--- NOTE | 2019-02-07 13:00 | NUR ---
Follow-up Nutrition Assessment- Dx: Hypercarbic Respiratory Failure, PNA Labs: (02/07) BG 167H, BUN 24H Meds: D10%, Humulin, Lactinex, Lasix, Pepcid, Solu-medrol, Zofran, Heparin Diet: Pureed diet w/ NTL PO intake: average of 63% x 4 meals Weights: (02/07) 106.8 kg; (02/03) 115.7 kg, (02/02) 117.4 kg, wt fluctuation is anticipated d/t pt admitted w/ edema to BLE/BUE and pt on Lasix. Skin: redness to abd folds, redness to buttocks. Calixto: 16 Edema: trace edema noted to BLE. Last BM: 02/06/19, formed Pt seen in bed, awake and alert that last visit in ICU. Pt reported of 100% intake of breakfast earlier today, worked w/ physical therapist this morning. Pt denied any abd discomfort, N/V/D/C. Pt had a lot of questions re:current diet and diet upon discharge. RD answered all of pt's questions and spent a significant amount of time in pt's room. Pt also verbalized some dietary requests, RD informed kitchen staff. Pt is tolerating current diet very well. RD rec to add CCHO to current diet, pt declined. JEWELRY SETTER Desire informed as well. Estimated Nutritional Needs based on Adj BW 116 kg: Energy: 3729-8043 kcal/d (11-14 kcal/kg -obesity) Protein: 82-95 g (1.2-1.4 g/kg adj IBW 68 kg- for maintenance) Fluid: 4656-2873 mL/d (1 mL/kcal or per MD order-for fluid balance and maintenance) Nutrition Diagnosis 1. Inadequate nutrient intake r/t pathophysiological factors AEB PO intake <75% of meals and difficulty breathing. (*improving PO intake) 2. Altered nutrition related labs r/t endocrine dysfunction AEB elevated BG lab values since admission. (new) Intervention 1. Recommend CCHO Pureed, NTL. 2. Encourage pt to increase PO intake. Monitor/Evaluate Previous goal: 75% of estimated needs (not met) Goal: PO intake at least 75% of estimated needs Monitor: PO intake, Labs, GI function F/U in 2-3 days as high risk (02/09-02/10)
--- NOTE | 2019-02-07 13:00 | NUR ---
1. Recommend CCHO Pureed, NTL. 2. Encourage pt to increase PO intake.
--- NOTE | 2019-02-07 13:05 | NUR ---
INFORMED BY RESP THERAPY PT REFUSING BREATHING TREATMENTS. PT STATES SHE "DOESN'T WANT THEM". PROVIDED EDUCATION TO THE PT REGARDING BENEFITS IN RECEIVING TREATMENTS. PT STILL REFUSES AT THIS TIME. NO ACUTE DISTRESS OR DISCOMFORT NOTED AT THIS TIME. SAFETY MAINTAINED.
[2019-02-07 13:31] VITALS: BP 143/79
--- NOTE | 2019-02-07 15:07 | NUR ---
PT REPOSITIONED WITH NUCLEAR SUPERVISING OPERATOR. APPLIED ZGUARD TO ABDOMINAL FOLDS AND PERIANAL AREA. PT REFUSES TO HAVE OPTIFOAM ON BUTTOCKS AT THIS TIME. PT REFUSING BATHING AT THIS TIME. WILL CONTINUE TO MONITOR. SAFETY MEASURES IN PLACE. CALL LIGHT WITHIN REACH.
[2019-02-07 17:24] VITALS: BP 139/73
--- NOTE | 2019-02-07 17:54 | NUR ---
PT COMPLAINING OF PAIN TO THROAT FROM COUGHING AND TALKING. ASKING FOR PAIN MED. TYLENOL ADMINISTERED ORDERED PRN (SEE EMAR). NO OTHER ACUTE DISTRESS NOTED. PT REPORTS FEELING "SO MUCH BETTER". WILL CONTINUE TO MONITOR.
--- NOTE | 2019-02-07 18:27 | NUR ---
PT REPORTS RELIEF FROM PAIN AFTER ADMINISTRATION OF TYLENOL. NO ACUTE DISTRESS NOTED AT THIS TIME. ALL NEEDS TENDED TO THROUGHOUT SHIFT. WILL CONTINUE TO MONITOR AND ENDORSE CARE TO STRIPPER PRELIMINARY.
--- NOTE | 2019-02-07 19:30 | NUR ---
RECEIVED REPORT FROM DAY SHIFT RN. PT SITTING UP IN BED. AA&O X4. NO SOB ON HIGH FLOW O2 10L. NO C/O PAIN. NO DISTRESS NOTED. IV TO LFA, INTACT. NUNO CATHETER IN PLACE, DRAINING YELLOW URINE BY GRAVITY. SAFETY MEASURES IN PLACE. BED IN LOWEST POSITION. SIDE RAILS UP X2. INSTRUCTED PT TO USE THE CALL LIGHT FOR ASSISTANCE. CALL LIGHT WITHIN REACH.
[2019-02-07 21:08] VITALS: BP 127/71
--- NOTE | 2019-02-08 01:05 | NUR ---
PT RESTING WITH EYES CLOSED. NO SOB ON HIGH FLOW O2 10L. BREATHING EVEN AND UNLABORED. NO FACIAL GRIMACING. NO DISTRESS NOTED. CALL LIGHT WITHIN REACH. WILL CONTINUE TO MONITOR.
[2019-02-08 05:56] VITALS: BP 144/84
[2019-02-08 06:41] LABS: CALCIUM 9.1 mg/dL (8.5-10.1); CARBON DIOXIDE 31.1 mmol/L (21-32); CHLORIDE SERUM 101 mmol/L (98-107); CREATININE SERUM 0.9 mg/dL (0.6-1.0); GFR1 > 60 mL/min; GLUCOSE SERUM 204 mg/dL (74-106); POTASSIUM SERUM 3.8 mmol/L (3.5-5.1); SODIUM SERUM 139 mmol/L (136-145)
--- NOTE | 2019-02-08 06:57 | NUR ---
PT RESTED IN INTERVALS DURING SHIFT. NO C/O SOB ON HIGH FLOW O2 10L. NO C/O PAIN. NO ACUTE DISTRESS NOTED. SAFETY MEASURES MAINTAINED. ALL NEEDS ATTENDED TO. CALL LIGHT WITHIN REACH. WILL ENDORSE CONTINUITY OF CARE TO ONCOMING RN.
--- NOTE | 2019-02-08 06:59 | NUR ---
PHYSICAL THERAPY DAILY NOTES CO-SIGN All documentation done by the Project Development Coordinator for 02/08/19 has been reviewed. I agree with the documentation. Reviewed/Co-Signed by: Rachna De Paz PT Documentation Done by:PAMELA WISE COMMUNICATIONS REPRESENTATIVE FOR 02/07/19
--- NOTE | 2019-02-08 07:20 | NUR ---
RECIEVED SITTING UP IN BED IN GOOD SPIRITS. A/O X4 DENIES ANY GARCIA OR DIZZINESS. CONNECTED TO TELE#15 SR WITH BBB ON MONITOR, MD AWARE. LUNGS DIMINISHEDBILAT, ON HIGH FLOW O2 @10L/35% FIO2. NO SOB NOTED. NUNO CATHETER IN PLACE AND DRAINING YELLOW URINE. IV INTACT AND PATENT ON LFA 22 G, RUNNING 10ML/HR NS. SKIN ERYTHMA TO ABD SKIN FOLDS, PERINEAL AREA, GROIN, AND INNER THIGHS NOTED. TREATED WITH Z-GUARD AND KEPT CLEAN AND DRY. SAFETY PRECAUTIONS IN PLACE. CALL LIGHT WITHIN REACH. WILL MONITOR.
[2019-02-08 09:24] LABS: PLATELET COUNT 234 x10^3mcL (130-400)
[2019-02-08 09:26] LABS: BASOPHIL % 0 % (0-2); RED CELL DISTRIBUTION WIDTH 18.2 % (11.5-14.5)
[2019-02-08 09:45] VITALS: BP 164/79
[2019-02-08] MEDS ORDERED: ZITHROMAX100 MG/5 M IV (10:26)
--- NOTE | 2019-02-08 10:30 | NUR ---
PT STABLE SITTING UP IN BED. NO C/O PAIN, DISTRESS OR SOB. RT PUT PT O2 AT 30% HIGH FLOW. NO SOB NOTED. RR EQUAL AND UNLABORED. DENIES CP OR PRESSURE. SAFETY PRECAUTIONS IN PLACE. CALL LIGHT WITHIN REACH. WILL MONITOR.
--- NOTE | 2019-02-08 12:38 | NUR ---
TITRATED PT TO 3L NC. SPO2:98%. NO ACUTE RESP DISTRESS NOTED. PT DENIES SOB. WILL CONT.TO MONITOR. NURSE NUNO NOTIFIED.
--- NOTE | 2019-02-08 12:45 | NUR ---
RT TOOK PT OF HIGH FLOW AND PUT HER ON 3LPM NC. TOLERATEING WELL, SAT AT 96%. WILL MONITOR
[2019-02-08 13:13] VITALS: BP 160/87
[2019-02-08 14:57] VITALS: BP 160/87
--- NOTE | 2019-02-08 16:00 | NUR ---
PT STABEL AT THSI TIME. SITTING UP IN BED AND DENIES ANY PAIN, DISTRESS, OR SOB. TOLERATING ILPM VIA NC AT THIS TIME PER RT. SAFETY PRECAUTIONS IN PLACE. CALL LIGHT WITHIN REACH. WILL MONITOR
--- NOTE | 2019-02-08 17:13 | NUR ---
MARTINEZ INFORMED THAT PATIENT WAS EVALUATED BY DICKSON LIASON AND SHE IS NOT APPROPRIATE FOR DICKSON AT THIS TIME. ATTENDING NICKY BRAN MADE AWARE.
[2019-02-08 17:38] VITALS: BP 133/73
--- NOTE | 2019-02-08 19:30 | NUR ---
RECEIVED REPRT FROM DAY SHIFT RN. PT SITTING UP IN BED. AA&O X4. NO SOB ON O2 1L NC. BREATHING EVEN AND UNLABORED. NO C/O PAIN. NO DISTRESS NOTED. IV TO LFA, INTACT. SAFETY MEASURES IN PLACE. BED IN LOWEST POSITION. SIDE RAILS UP X2. INSTRUCTED PT TO USE THE CALL LIGHT FOR ASSISTANCE. CALL LIGHT WITHIN REACH.
--- NOTE | 2019-02-08 19:43 | NUR ---
PT STABLE AT THSI TIME. A/O X4 DENIES ANY GARCIA OR DIZZINESS.CONNECTED TO TELE#15 SR WITH BBB ON MONITOR, DENIES ANY CP OR PRESSURE AT THSI TIME. MD AWARE. LUNGS DIMINISHED BILAT, ON HIGH 2 LMP O2 VIA NC.TOLERATING WELL. NO SOB NOTED. NUNO CATHETER IN PLACE AND DRAINING YELLOW URINE. IV INTACT AND PATENT ON LFA 22 G, RUNNING 10ML/HR NS. SKIN ERYTHMA TO ABD SKIN FOLDS, PERINEAL AREA, GROIN, AND INNER THIGHS NOTED. TREATED WITH Z-GUARD AND KEPT CLEAN AND DRY. SAFETY PRECAUTIONS IN PLACE. CALL LIGHT WITHIN REACH.CARE ENDORESED TO NIGHT NURSE.
[2019-02-08 20:47] VITALS: BP 133/79
[2019-02-09 05:12] VITALS: BP 164/99
--- NOTE | 2019-02-09 07:05 | NUR ---
RECIEVED PT RESTING IN BED COMFORTABLY. DENIES ANY PAIN, DISTRESS, OR SOB. A/O X4. DENIES ANY GARCIA OR DIZZINESS. TELE MONITOR#15 CONNECTED TO PT. DENIES ANY CP OR PRESSURE. SR WITH BBB ON MONITOR, AWARE. LUNGS DIMINISHE BILAT. PT ON 1 L O2 VIA NC. TOLERATING WELL. NUNO CATH INTACT AND DRAINING YELLOW URINE. SKIN NOTED WITH ERYTHMA TO ABD SKIN FOLDS, PERINEAL, GROIN, AND INNER THIGHS. TREATED WITH Z GUARD. IV INTACT AND PATENT TO LFA 22 G, RUNNING 10ML/HR NS TKO. NO REDNESS OR INFLAMMATION NOTED. SAFETY PRECAUTIONS IN PLACE. CALL LIGHT WITHIN REACH. WILL MONIOR.
--- NOTE | 2019-02-09 07:30 | NUR ---
PT SLEPT AT INTERVALS DURING SHIFT. NO C/O SOB OR PAIN. NO DISTRESS NOTED. SAFETY MEASURES MAINTAINED. ALL NEEDS ATTENDED TO. ENDORSED CONTINUITY OF CARE TO DAY SHIFT RN.
[2019-02-09 09:28] VITALS: BP 149/67
[2019-02-09 09:30] VITALS: BP 149/67
[2019-02-09] MEDS ORDERED: PREDNISONE20 MG PO (09:41)
[2019-02-09] MEDS ORDERED: ZITHROMAX250 MG PO (09:41)
--- NOTE | 2019-02-09 10:00 | NUR ---
PT STABLE AT THIS TIME. DENIES ANY SOB, PAIN, OR DISTRESS AT THIS TIME. SAFETY PRECAUTIONS IN PLACE, CALL LIGHT WITHIN REACH, WILL MONITOR.
[2019-02-09] MEDS ORDERED: AEROECLIPSE II1 EACH MC (11:55)
[2019-02-09] MEDS ORDERED: XOP0.63 HHN (11:55)
[2019-02-09 13:00] VITALS: BP 144/78
--- NOTE | 2019-02-09 13:00 | NUR ---
PT STABLE AT THIS TIME. NO SOB, PAIN, OR DISTRESS NOTED. SAFETY PRECAUTIONS IN PLACE. CALL LIGHT WITHIN REACH. WILL MONITOR
--- NOTE | 2019-02-09 14:20 | NUR ---
PHYSICAL THERAPY DAILY NOTES CO-SIGN All documentation done by the Gas Engine Performance Engineer for 02/09/19 has been reviewed. I agree with the documentation. Reviewed/Co-Signed by: Rachna De Paz PT Documentation Done by:PAMELA ANNE FOR 02/08/19
--- NOTE | 2019-02-09 14:25 | NUR ---
PHYSICAL THERAPY DAILY NOTES CO-SIGN All documentation done by the Crime Scene Analyst for 02/09/19 has been reviewed. I agree with the documentation. Reviewed/Co-Signed by: Rachna De Paz PT Documentation Done by:PAMELA ANNE PTA
--- NOTE | 2019-02-09 15:02 | NUR ---
Intervention 1. Continue on puree diet as tolerated
--- NOTE | 2019-02-09 15:02 | NUR ---
Follow-up Nutrition Assessment: Gen Farooq F/U Room 202B Dx: Hypercarbic Respiratory Failure, Pneumonia PMHx: COPD, CHF, HTN, DM Labs: (02/08) Glucos. 204H, BUN 23.0H, Meds: Dextrose 10%, Humulin, Lactinex, Lasix, Pepcid, Precision PCX Blood Glucose Strips, Sodium Chl 0.9%, Zofran, Heparin Sodium Diet: Puree ([place] thick liquids) PO Intake: (02/06) 50-100%, (02/07) 100%, (02/08) 100% Weights: 254# Bed scale: (02/09) 224# Skin: Intact Calixto: 16 I/Os: (02/09) Total intake: 385, Total Output: 5600 Edema: None GI: Last BM: 02/08/19 Pt Visit: Pt was very alert and eager to talk about her food and nutrition. Pt asked questions about eating fast food, grocery shopping about eating fried foods, how to cook meals and how often she should be eating. Pt currently has a good appetite and has no N/V/D/C. She said she eats a regular diet at home but will now try to watch her sugar, salt and fat intake. The physical activity she does at home is a lot of cleaning; sweeping, vacuuming, etc. She wanted to know if she could take a multi-vitamin, currently takes a vitamin that her daughter told her to take. Pt sates she is doing well on the puree diet and wants to ask the doctor when she can try more textured foods. Estimated Nutritional Needs based on ideal body wt of 54kg Energy Needs: 1600-1900kcal/d (30-35kcal/kg) (For PNA) Protein Needs: 54- 64g/day (1.0-1.2g/kcal) (for lean body mass) Fluid Needs: 1600-1900ml/day or per doctor Nutrition Diagnosis 1. Inadequate oral intake r/t pathophysiological factors aeb PO Intake <75% of meals and difficulty breathing. (Improving) Intervention 1. Continue on puree diet as tolerated Monitor/Evaluate Goal: Have pt meet at least 75% of estimated needs Monitor: PO intake, Labs, GI function, tolerance of diet MR F/U 02/12-02/14
[2019-02-09 17:55] VITALS: BP 149/67
[2019-02-09 18:02] VITALS: BP 142/77
--- NOTE | 2019-02-09 18:50 | NUR ---
PT STABLE TO DISCHARGE PER MD ORDER. VS WNL, NO DISTRESS OR PAIN REPORTED. NUNO CATHETER REMOVED INTACT WITH NO DISTRESS NOTED. OUTPUT OF 1400 YELLOW URINE EMPTIED. IV REMOVED WITH CATHETER INTACT, NO REDNESS OR INFLAMMATION NOTED. D/C INTSTRUCTIONS AND EDUCATION GIVEN TO PT. PT VERBALIZES UNDERSTANDING. ALL FORMS SIGNED AND ID BANDS REMOVED. PT ESCORTED DOWN TO LOBBY IN WC WITH RAILWAY SIGNALLING ENGINEER AND FAMILY AT SIDE.
--- NOTE | 2019-02-09 19:29 | NUR ---
PT DAUGHTER NOTIFIED THAT SHE NEEDS O2 TANK UPON DISCHARGE TO GO HOME ON 2 LPM PER RT. NOC NURSE NOTIFIES ALSO. NO SOB NOTED AT THIS TIME
--- NOTE | 2019-02-09 20:30 | NUR ---
PT DISCHARGED TO HOME. TRANSPORTATION PROVIDED BY DAUGHTER. NO SOB ON O2 2L VIA NC. DAUGHTER BROUGHT PT'S HOME OXYGEN TANK. NO C/O PAIN. NO DISTRESS NOTED. TELE#15 AND IV REMOVED BY DAY SHIFT RN. DISCHARGE PAPERS GIVEN TO PT.
== END 2019-02-09 20:27 | disposition home or self-care (01) | DRG 720 ==
LOC: ED 22:38 → IC 01-26 01:09 → DU 02-04 00:07
PROVIDERS: Emergency Medicine; General Practice; ADMIT Internal Medicine
PROC: 5A1955Z Respiratory Ventilation, Greater than 96 Consecutive Hours (ICD-10-PCS; principal; 2019-01-26)
PROC: 0BH17EZ Insertion of Endotracheal Airway into Trachea, Via Natural or Artificial Opening (ICD-10-PCS; 2019-01-26)
DX: A41.9 Sepsis, unspecified organism (principal); N17.0 Acute kidney failure with tubular necrosis; J96.21 Acute and chronic respiratory failure with hypoxia; G93.41 Metabolic encephalopathy; J18.1 Lobar pneumonia, unspecified organism; I11.0 Hypertensive heart disease with heart failure; J44.0 Chronic obstructive pulmonary disease with (acute) lower respiratory infection; I50.9 Heart failure, unspecified; J96.22 Acute and chronic respiratory failure with hypercapnia; K76.0 Fatty (change of) liver, not elsewhere classified; J44.1 Chronic obstructive pulmonary disease with (acute) exacerbation; E11.9 Type 2 diabetes mellitus without complications; E66.2 Morbid (severe) obesity with alveolar hypoventilation; R74.0 Nonspecific elevation of levels of transaminase and lactic acid dehydrogenase [LDH]; E44.1 Mild protein-calorie malnutrition; F20.9 Schizophrenia, unspecified; E02 Subclinical iodine-deficiency hypothyroidism; Z68.41 Body mass index [BMI] 40.0-44.9, adult; Z87.891 Personal history of nicotine dependence; Z91.19 Patient's noncompliance with other medical treatment and regimen
CPT/HCPCS: 36600; 82962; 83880; 84439; 87804; 97110-GP; 97116-GP; 97530-GP; A4628; J0456; J1644; J1815; J1940; J2250; J2543; J2704; J2920; J2930; J3010; J3370; J3490; J7030; J7050; J7620; J7626; Q0092